=== PATIENT | female | born 1975 | race Caucasian/White ===

== ENCOUNTER 2025-05-29 17:21 | Emergency (ER) | payer BC, SELFPAY ==
--- OUTSIDE RECORDS SUMMARY | 2025-05-27 23:59 | XMS_ITS | Continuity of Care Document ---
Author Organization [facility] Address [address] [place] [address]- Care Team Providers Care Circle Cutting Saw Operator Name Role Phone Aixa Sandhu Primary Care Physician [phone] Encounter [facility] Date(s): 04/27/25 - 05/27/25 [facility] [address], [place] [address] Encounter Type: Triage Allergies, Adverse Reactions, Alerts Substance Criticality Severity Reaction Reaction Severity Status amoxicillin Rash Active Medications Copper 0 Refills, Maintenance, 03/24/25 3:02:00 PM EDT, Partial fill upon patient request if the prescription is for a schedule II opioid drug. Start Date: 03/24/25 Status: Ordered Medication Dispense Status: Completed Total Allowed Fills: 1 Fills Dispensed: 0 ferrous sulfate 325 mg oral enteric coated tablet See Instructions, 1 tablet three times a day by Mouth Every other day. may take with food to minimize abdominal discomfort., # 126 tablet, Refills 3, Tot. Refills 3, Maintenance, 09/18/24 3:40:00 PM EST, Instructions Replace Required Details, Route to Pharmacy Electronically, [facility] # [id number], Partial fill upon patient request if the prescription is for a schedule II opioid drug., 157.5, cm, 09/16/24 8:24:00 EST, Height Start Date: 09/18/24 Status: Ordered Medication Dispense Status: Completed Quantity: 126.0 Unit: tablet Total Allowed Fills: 4 Fills Dispensed: 0 Keppra 750 mg oral tablet 2 tablet = 1,500 mg, By Mouth, 2 times a day, # 360 tablet, 0 Refills, Maintenance, 04/21/25 2:47:00PM EDT, Tablet, [id number], Partial fill upon patient request if the prescription is for a schedule II opioid drug. Please ask pt to call office to schedule appointment for any further refills., 158, cm, 03/24/25 15:02:00 EDT, Height, 130.8, kg, 12/09/24 14:13:00 EDT, Dry Weight Start Date: 04/21/25 Status: Ordered Medication Dispense Status: Completed Quantity: 360.0 Unit: tablet Total Allowed Fills: 1 Fills Dispensed: 0 Magnesium Citrate By Mouth, 0 Refills, Maintenance, 03/24/25 3:01:00 PM EDT, Partial fill upon patient request if the prescription is for a schedule II opioid drug. Start Date: 03/24/25 Status: Ordered Medication Dispense Status: Completed Total Allowed Fills: 1 Fills Dispensed: 0 omeprazole 20 mg oral enteric coated capsule 1 capsule, By Mouth, Daily, # 90 capsule, 1 Refills, Maintenance, 04/14/25 12:56:00 PM EDT, [facility] # 50, 158, cm, 03/24/25 15:02:00 EDT, Height, 130.8, kg, 12/09/24 14:13:00 EDT, Dry Weight Start Date: 04/14/25 Status: Ordered Medication Dispense Status: Completed Quantity: 90.0 Unit: capsule Total Allowed Fills: 1 Fills Dispensed: 0 Provera 10 mg oral tablet See Instructions, 1 tablet by mouth twice daily until bleeding slows then once daily for a total of10 days, # 20 tablet, Refills 0, Tot. Refills 0, Maintenance, 05/27/25 9:25:00 AM EDT, InstructionsReplace Required Details, Route to Pharmacy Electronically, [facility] #[id number], Partial fill upon patient request if the prescription is for a schedule II opioid drug., 158, cm, 05/08/25 15:02:00 EDT, Height, 130.8, kg, 12/09/24 14:13:00 EDT, Dry Weight Start Date: 05/27/25 Status: Ordered Medication Dispense Status: Completed Quantity: 20.0 Unit: tablet Total Allowed Fills: 1 Fills Dispensed: 0 solifenacin 5 mg oral tablet 1 tablet = 5 mg, By Mouth, Daily, # 30 tablet, 2 Refills, Maintenance, 01/21/25 11:55:00 AM EDT, Tablet, [facility] # 50, Partial fill upon patient request if the prescription is for a schedule IIopioid drug., 158, cm, 01/08/25 8:25:00 EDT, Height, 130.8, kg, 12/09/24 14:13:00 EDT, Dry Weight Start Date: 01/21/25 Status: Ordered Medication Dispense Status: Completed Quantity: 30.0 Unit: tablet Total Allowed Fills: 3 Fills Dispensed: 0 Suprep Bowel Prep Kit oral liquid See Instructions, see colonoscopy instructions, # 1 kit, 0 Refills, Maintenance, 04/21/24 3:55:00 PMEDT, [facility] # [facility], Partial fill upon patient request if the prescription is for a schedule II opioid drug., see colonoscopy instructions, 157.5, cm, 04/21/24 15:13:00 EDT, Height Start Date: 04/21/24 Status: Ordered Medication Dispense Status: Completed Quantity: 1.0 Unit: kit Total Allowed Fills: 1 Fills Dispensed: 0 tolterodine 4 mg oral capsule, extended release 1 capsule = 4 mg, By Mouth, Daily, # 30 capsule, 11 Refills, Maintenance, 09/25/24 3:26:00 PM EST, [facility] # [facility], Partial fill upon patient request if the prescription is for a schedule II opioid drug., 157.5, cm, 04/24/24 14:58:00 EDT, Height Start Date: 09/25/24 Stop Date: 09/20/25 Status: Ordered Medication Dispense Status: Completed Quantity: 30.0 Unit: capsule Total Allowed Fills: 12 Fills Dispensed: 0 trospium 60 mg oral capsule, extended release 1 capsule = 60 mg, By Mouth, Daily in AM, # 30 capsule, 2 Refills, Maintenance, 03/05/25 2:13:00 PM EDT, CR Capsule, [facility] # [facility], Partial fill upon patient request if the prescription is for a schedule II opioid drug., 158, cm, 03/05/25 13:46:00 EDT, Height, 130.8, kg, 12/09/24 14:13:00 EDT, Dry Weight Start Date: 03/05/25 Status: Ordered Medication Dispense Status: Completed Quantity: 30.0 Unit: capsule Total Allowed Fills: 3 Fills Dispensed: 0 Vitamin B12 0 Refills, Maintenance, 03/05/25 1:47:00 PM EDT, Partial fill upon patient request if the prescription is for a schedule II opioid drug. Start Date: 03/05/25 Status: Ordered Medication Dispense Status: Completed Total Allowed Fills: 1 Fills Dispensed: 0 Vitamin C = 250 mg, By Mouth, 3 times a day, take with iron, 0 Refills, Maintenance, 12/09/24 5:00:00 PM EDT, Partial fill upon patient request if the prescription is for a schedule II opioid drug. Start Date: 12/09/24 Status: Ordered Medication Dispense Status: Completed Total Allowed Fills: 1 Fills Dispensed: 0 Vitamin D 12719 iu oral capsule 50,000 International_Units, By Mouth, Daily, Refills 0, Maintenance, 03/05/25 1:47:00 PM EDT, Partialfill upon patient request if the prescription is for a schedule II opioid drug. Start Date: 03/05/25 Status: Ordered Medication Dispense Status: Completed Total Allowed Fills: 1 Fills Dispensed: 0 ZyrTEC 10 mg oral tablet 1 tablet = 10 mg, By Mouth, Daily, 0 Refills, Maintenance, 01/08/25 8:25:00 AM EDT, Partial fill upon patient request if the prescription is for a schedule II opioid drug. Start Date: 01/08/25 Status: Ordered Medication Dispense Status: Completed Total Allowed Fills: 1 Fills Dispensed: 0 Problem List Condition Confirmation Course Effective Dates Status Health St atus Informant Epilepsy Confirmed Active Iron deficiency anemia Confirmed Active Obesity, morbid, BMI 50 or higher Confirmed Active Nonalcoholic fatty liver disease Confirmed Active Plantar fasciitis, right Confirmed Active Severe obesity Confirmed Active Tubular adenoma of colon Confirmed Active Social History Social History Type Response Smoking Status Never (less than 100 in lifetime) entered on: 05/14/23 Sexual Orientation Self described orien tation: ; Straight or heterosexual Sex Sex Representation Female (finding) Patient Care team information Care Team Personnel Name: Aixa Sandhu Position: S PCO Associate Professional Member Role: PCP Address: [address] [place] [phone]- [place] Telecom: Care Team Related Persons Name: DEANGELO ALTAMIRANO Insurance Providers Guarantor name: GREY ALTAMIRANO Health Plan Information #: 1 Payer: [facility] H[facility] Payer Identifier: NA Member Number: [id number] Group Number: [id number] Subscriber Identifier: NA Relationship to Subscriber: spouse Coverage Type: NA Coverage Verification Date: NA Telecom: NA Address: NA
[2025-05-29 17:36] VITALS: BP 172/83; PULSE 86; RESP 16; TEMP 36.6; O2SAT 96; BMI 50.7
--- NOTE | 2025-05-29 17:36 | ED_ITS ---
HPI - Eye Problem General Chief complaint: Eye Problems Stated complaint: Eye issue Time Seen by Provider: 05/29/25 20:10 History of Present Illness HPI Narrative: 49-year-old female with a history of hypertension presents with left eye blurriness x1 week. Patient states she has had a stye over the lower lid, she has developed blurriness of the eye, the lower lid is still painful, she is tearing at times, she is not waking up with a ocular discharge in the morning. The eyeball itself is non- painful and not red. She does not use contact lenses. She does wear glasses. She denies that she sees a ? curtain closing in her field of view . Related Data Previous Rx's ?Medication ?Instructions ?Recorded neomycin 3.5 mg/g-polymyxin B 0.5 inch ophthalmic-Left QID 2 05/30/25 10,000 unit/g-dexameth 0.1 % eye weeks #3.5 grams oint (Maxitrol) Allergies Allergy/AdvReac Type Severity Reaction Status Date / Time amoxicillin Allergy Rash Verified 05/29/25 17:37 Review of Systems Review of Systems: Yes all other systems are reviewed and are negative Constitutional: Constitutional: Denies fatigue, Denies fever(s) and Denies headache(s) Eyes: Eyes: Reports blurry vision, Reports eye discharge, Denies floaters, Reports itchy eyes, Denies loss of peripheral vision and Denies photophobia ENT: Denies dizziness and Denies headache(s) Gastrointestinal: Gastrointestinal: Denies nausea and Denies vomiting Neurologic: Denies dizziness and Denies headache(s) Endocrine: Endocrine: Denies fatigue Allergic/Immunologic: Allergic/Immunologic: Reports itchy eyes PMFSH Past Medical History Attestation statement: The following information was validated with the patient. Social History Social History Smoked in Last 30 Days: No Use of substances other than those prescribed or required for medical reasons: No Advance Directives: No Advance Directives Information Provided: Yes Do you have a plan to hurt others: No Plan Physical Exam Vital Signs: Vital Signs: Last Vital Signs Temp 97.8 F 05/29/25 22:02 Pulse 72 05/29/25 22:02 Resp 18 05/29/25 22:02 BP 135/84 05/29/25 22:02 Pulse Ox 95 05/29/25 22:02 O2 Del Method Room Air 05/29/25 22:02 BMI result Body Mass Index 50.7 Const: Other: Alert well-appearing Orientation/consciousness: patient oriented x3 Eyes: Other: Extraocular eye movements intact, no corneal abrasion noted with fluorescein stain, visual acuity 0 on the left, 2014 on the right, IOP 17.7, Direct Ophthalmoscopy: No photophobia Resp: Effort & Inspection: normal respiratory effort Cardio: Other: Normal peripheral perfusion Skin: Other: Warm dry no rash Neuro: General: patient oriented x3, gait normal, no focal motor deficits and CN's II-XI intact bilaterally Psych: Other: Cooperative Course Course Course Narrative: This is a Rapid Medical Examination (RME) performed by Kelly Kenney PA-C in triage. Full HPI, ROS, assessment and treatment plan per primary provider in the Main ED. Hx: 49 yo F hx seizures on keppra here w/ blurred vision to L eye on waking 4 days ago. no pain/irritation. admits to L eye pain 1 week prior, followed by a stye in the L eye which has since resolved. blurred vision has persisted. reports ocular migraine 1 week ago. attempted to contact ophalmology - cannot get an appointment. mild LEE at present which is her baseline. Plan: eye exam Reevaluation(s) Reevaluation #1: Called the patient back overnight to let her know that the office we will be open on Sunday, not today which is Sunday I miss spoke, she is aware and aware of the medication change per Dr. Tidwell Time: 06:34 Consultations Consultation #1: Dr. Tidwell....recs hot tea bag compresses for 5 minutes gentle massage, and Maxitrol q.i.d. x2 weeks Time: 06:33 Medications Administered Discontinued Medications Generic Name Dose Route Start Last Admin Trade Name Freq PRN Reason Stop Dose Admin Erythromycin 1 cm 05/29/25 21:55 05/29/25 21:59 Erythromycin Base 0.5% Oph Oin 1 Gm Tube EYE-LEFT 05/29/25 21:56 1 cm ONCE ONE Administration Fluorescein Sodium 1 strip 05/29/25 17:39 05/29/25 18:46 Fluorescein Sodium Strip EYE-LEFT 05/29/25 17:40 1 strip ONCE ONE Administration Tetracaine HCl 1 drop 05/29/25 17:39 05/29/25 18:46 Tetracaine Hcl/Pf 0.5% Oph Consuelo 4 Ml Drops EYE-LEFT 05/29/25 17:40 1 drop ONCE ONE Administration Medical Decision Making Medical Decision Making [facility] Narrative: 49-year-old female with a history of hypertension presents with left eye blurriness x1 week. Patient states she has had a stye over the lower lid, she has developed blurriness of the eye, the lower lid is still painful, she is tearing at times, she is not waking up with a ocular discharge in the morning. The eyeball itself is non- painful and not red. She does not use contact lenses. She does wear glasses. She denies that she sees a ? curtain closing in her field of view . Problem: History of hypertension, age History: Per patient I have considered the following differential diagnoses: Stye, conjunctivitis, corneal abrasion/ulceration, vitreal hemorrhage/detachment, retinal detachment, glaucoma, Plan: Patient is having subtle blurred vision of the left eye in the presence of a stye that has irritating. She has no abrasion, her intra-ocular pressures are normal at 17.7, the eye itself is nonpainful, there was no injection of the sclera or palpebral conjunctiva, I have viewed the site with bedside ultrasound, no evidence of retinal detachment or vitreal hemorrhage. We will send with a contact follow up with Ophthalmology, placing on erythromycin. No indication for imaging or labs. This is clearly not glaucoma, Differential Diagnosis Differential Diagnoses: The differential diagnosis associated with the presentation includes See medical decision-making Admission/Observation Consideration of admission/observation: Escalation of care including admission/observation considered Not applicable Consult Healthcare Provider Management of the patient was discussed with: Gymnastics Coach Ophthalmology for Sunday Discharge Plan Discharge Clinical Impression: Blurred vision, left eye, Chalazion left lower eyelid Patient Disposition: Home, Self-Care Instructions: Chalazion (ED), Blurred Vision (ED) Additional Instructions: You were found to have a stye, see home care instructions. Apply warm compresses several times a day. Use the erythromycin ointment as directed. I am providing you with a contact for our customer support representative, you can reach out to them in the morning when their office opens on Sunday. I am sending them an inter-hospital referral message as well. Prescriptions: New neomycin-polymyxin B-dexameth [Maxitrol] 3.5 mg/g-10,000 unit/g-0.1 % ointment 0.5 inch ophthalmic-Left QID 14 Days Qty: 3.5 1RF Rx Instructions: space evenly during waking hours Referrals: Ankur Tidwell [Physician, Ophthalmology] Referral Note: left chalazion lower lid, blurred vision Interventions: ED Discharge Assessment Last Done: 05/29/25 22:02 Discharge Date/Time: 05/29/25 22:03 Print Language: Croatian
[2025-05-29] MEDS: Tetracaine HCl/PF 0.5% Oph Sol 4 ML DROPS 1 DROP EYE-LEFT (18:46)
[2025-05-29] MEDS: Fluorescein Sodium STRIP 1 STRIP EYE-LEFT (18:46)
--- OUTSIDE RECORDS SUMMARY | 2025-05-29 19:39 | XMS_ITS | Encounter Summary ---
Author Organization [facility] Address [address] [place] [phone] Phone Care Team Providers Care Senior Cognos Developer Name Role Phone Pcp, Unknown Primary Care Provider Cathy Christiansen Primary Care Provider Reason for Referral * Physical Therapy (Routine) - Closed Specialty Diagnoses / Procedures Referred By Richard okeefe Referred To Contact Physical Therapy Diagnoses Encounter for rehabilitation Cathy [place] PA [address] [place] [phone] Phone: tel: fax: [address] [address] Phone: tel: Referral ID Status Reason Start Date Expiration Date Visits Re quested Visits Authorized [id number] Closed 06/20/2023 06/20/2024 1 1 Encounter Details Date Type Department Care Team (Latest Contact Info) Description 06/20/2023 Transcribe Orders [facility] [address] [place] [address] Cathy [place] PA [address] [place] [address] Encounter for rehabilitation (Primary Dx) Social History Tobacco Use Types Packs/Day Years Used Date Smoking Tobacco: Never Assessed Comments Unknown Sex and Gender Information Value Date Recorded Sex Assigned at Not on file Legal Sex Female 10:16 AM EST Gender Identity Not on file Sexual Orientation Not on file documented as of this encounter Plan of Treatment Scheduled Referrals Name Type Priority Associated Diagnoses Orde r Schedule Ambulatory referral to [facility] Physical Therapy Outpatient Referral Routine Encounter for rehabilitation Ordered: 06/20/2023 documented as of this encounter Visit Diagnoses Diagnosis Encounter for rehabilitation- Primary documented in this encounter Care Teams Senior Cognos Developer Relationship Specialty Start Date End Date Pcp, Unknown PCP - General 06/05/23 07/25/23 Cathy [place] PA [address] [place] [address] PCP - General Physician Earth Mover 07/26/23 documented as of this encounter Additional Source Comments The information contained in this document represents components of the legal health record. It is not the complete legal health record.[facility]
--- OUTSIDE RECORDS SUMMARY | 2025-05-29 19:39 | XMS_ITS | Patient Health Record ---
Author Organization [facility] [address] Address [address] [place] [address] Care Team Providers Care Senior Interactive Developer Name Role Phone Aixa Fried Primary Care Provider Ramonita Shah Unavailable [phone] Allergies Allergen (clinical drug ingredient) Drug/Non Drug Allergy documented on EMR Reaction Allergy Type Onset Date Status amoxicillin Amoxicillin rash Drug Allergy Act klaudia Results Component Value Reference Range Notes Lori Godinez LP Default Reviewed date:05/04/2025 10:32:44 AM Interpretation: Performing Lab:[facility], [address] [facility], Phone - [phone], Director - MDNonadry Notes/Report: Lori Godinez LP Default A hand-written panel/profile was received from your office. In accordance with the [facility] Ambiguous Test Code Policy dated January 2003, we have completed your order by using the closest currently or formerly recognized AMA panel. We have assigned Lipid Panel, Test Code #[id number] to this request. If this is not the testing you wished to receive on this specimen, please contact the [facility] Client Inquiry/Technical Services Department to clarify the test order. We appreciate your business. TSH Rfx on Abnormal to Free [id number] Reviewed date:05/04/2025 10:32:57 AM Interpretation: Performing Lab:[facility], [address] [facility], [place], Phone - [phone], Director - MDJodry Notes/Report: TSH 3.170 0.450-4.500 uIU/mL Lori Godinez CMP14 Default A hand-written panel/profile was received from your office. In accordance with the [facility] Ambiguous Test Code Policy dated January 2003, we have completed your order by using the closest currently or formerly recognized AMA panel. We have assigned Comprehensive Metabolic Panel (14), Test Code #[id number] to this request. If this is not the testing you wished to receive on this specimen, please contact the [facility] Client Inquiry/Technical Services Department to clarify the test order. We appreciate your business. Lipid Panel-[id number] Reviewed date:05/04/2025 10:34:51 AM Interpretation: Performing Lab:[facility], [address] [facility], [place], Phone - [phone], Director - Brittani Notes/Report: Cholesterol, Total 199 100-199 mg/dL Triglycerides 159 0-149 mg/dL HDL Cholesterol 46 >39 mg/dL VLDL Cholesterol Jack 28 5-40 mg/dL LDL Chol Calc ([facility]) 125 0-99 mg/dL CBC With Differential/Platel et-[id number] Reviewed date:05/04/2025 10:37:27 AM Interpretation: Performing Lab:[facility] [place], [address] [facility], [place], Phone - [phone], Director - Brittani Notes/Report: WBC 8.9 3.4-10.8 x10E3/uL RBC 4.51 3.77-5.28 x10E6/uL Hemoglobin 13.5 11.1-15.9 g/dL Hematocrit 41.1 34.0-46.6 % MCV 91 79-97 fL MCH 29.9 26.6-33.0 pg MCHC 32.8 31.5-35.7 g/dL RDW 13.2 11.7-15.4 % Platelets 339 150-450 x10E3/uL Neutrophils 57 Not Estab. % Lymphs 28 Not Estab. % Monocytes 8 Not Estab. % Eos 6 Not Estab. % Basos 1 Not Estab. % Neutrophils (Absolute) 5.2 1.4-7.0 x10E3/uL Lymphs (Absolute) 2.5 0.7-3.1 x10E3/uL Monocytes(Absolute) 0.7 0.1-0.9 x10E3/uL Eos (Absolute) 0.5 0.0-0.4 x10E3/uL Baso (Absolute) 0.1 0.0-0.2 x10E3/uL Immature Granulocytes 0 Not Estab. % Immature Grans (Abs) 0.0 0.0-0.1 x10E3/uL Hemoglobin [id number] Reviewed date:05/04/2025 10:34:35 AM Interpretation: Performing Lab:[facility] [place], [address] [facility], [place], Phone - [phone], Director - Brittani Notes/Report: Hemoglobin A1c 5.6 4.8-5.6 % . Prediabetes: 5.7 - 6.4 Diabetes: >6.4 Glycemic control for adults with diabetes: <7.0 Comp. Metabolic Panel (14)-3 [id number] (Not yet reviewed by provider) Interpretation: Performing Lab:[facility] [place], [address] [facility], [place], Phone - [phone], Director - Brittani Notes/Report: Glucose 97 70-99 mg/dL BUN 11 6-24 mg/dL Creatinine 0.79 0.57-1.00 mg/dL eGFR 91 >59 mL/min/1.73 BUN/Creatinine Ratio 14 9-23 Sodium 138 134-144 mmol/L Potassium 4.4 3.5-5.2 mmol/L Chloride 101 96-106 mmol/L Carbon Dioxide, Total 22 20-29 mmol/L Calcium 9.2 8.7-10.2 mg/dL Protein, Total 7.2 6.0-8.5 g/dL Albumin 4.1 3.9-4.9 g/dL Globulin, Total 3.1 1.5-4.5 g/dL Bilirubin, Total 0.3 0.0-1.2 mg/dL Alkaline Phosphatase 72 41-116 IU/L AST (SGOT) 80 0-40 IU/L ALT (SGPT) 103 0-32 IU/L Vitamin D, [id number] (Not yet reviewed by provider) Interpretation: Performing Lab:[facility] [place], [address] [facility], Phone - [phone], Director - Brittani Notes/Report: Vitamin D, 25-Hydroxy 26.5 30.0-100.0 ng/mL Vitamin D deficiency has been defined by the [place] [employer] and an Endocrine Society practice guideline as a level of serum 25-OH vitamin D less than 20 ng/mL (1,2). The Endocrine Society went on to further define vitamin D insufficiency as a level between 21 and 29 ng/mL (2). 1. IOM ([place] of [employer]). 2010. Dietary reference intakes for calcium and D. [place]: The National Academies Press. 2. Lucila MF, Livia JOHNSON, Daria LEE, et al. Evaluation, treatment, and prevention of vitamin D deficiency: an Endocrine Society clinical practice guideline. JCEM. 2010; 96(7):1911-30. Reason For Referral Diagnosis 1 Dietary counseling ( Z71.3) Referred Provider Aixa Fried Referred Provider Specialty Weight Manag ement Referral Priority Routine Medications Medication SIG (Take, Route, Frequency, Duration) Notes Start Date End Date Status Vitamin D (Cholecalciferol) 25 MCG (1000 UT) 1 capsule Orally Once a day Active levETIRAcetam 750 MG TAKE 2 TABLETS BY M OUTH TWICE DAILY Oral; Duration: 60 Days Active Zepbound 5 MG/0.5ML 0.5 ML Subcutaneous once weekly; Duration: 30 days Active Fluticasone Furoate 100 MCG/ACT 1 puff Inhalation Once a day Active Iron 325 (65 Fe) MG 1 tablet Orally Thre e times a Week Active Social History Tobacco use other than smoking: Question Answer Notes Are you an other tobacco user? No AUDIT-C (Standard) Question Answer Notes Did you have a drink contain ing alcohol in the past year? Yes How often did you have a dri nk containing alcohol in the past year? Monthly or less (1 point) How many drinks did you have on a typical day when you were drinking in the past year? 1 or 2 drinks (0 point) How often did you have six o r more drinks on one occasion in the past year? Never (0 point) Points 1 Interpretation Negative Problems Problem Type SNOMED Code ICD Code Onset Dates Problem Status W/U Status Risk Notes Problem Morbid obesity (disorder) (659933010) Morbid (severe) obesity due to excess calories (E66.01) Active confirmed Problem Vitamin D deficiency (28817751) Vitamin D deficiency (E55.9) Active confirmed Problem Fatty liver (364498311) Fatty liver (K76.0) Active confirmed Problem Seizure disorder (523689651) Seizure disorder (G40.909) Active confirmed Problem Body mass index 40+ - severely obese (231422430) BMI 50.0-59.9, adult (Z68.43) Active confirmed Problem Polycystic ovary syndrome (disorder) (860691015) PCOS (polycystic ovarian syndrome) (E28.2) Active confirmed Problem Body mass index 40+ - severely obese (458937805) BMI 45.0-49.9, adult (Z68.42) Active confirmed Problem Obstructive sleep apnea syndrome (16455922) MIKEL on CPAP (G47.33) Active confirmed Vital Signs Heart Rate 81 /min 05/20/2025 Blood pressure diastolic 78 mm Hg 05/20/2025 Oximetry 99 % 05/20/2025 Height 62.5 in 05/20/2025 Blood pressure systolic 118 mm Hg 05/20/2025 Weight 273.7 lbs 05/20/2025 BMI 49.26 kg/m2 05/20/2025 Encounters Encounter Location Date Provider Diagnosis [facility] [address] [address] 04/28/2025 Ramonita Svrcek Morbid (severe) obes ity due to excess calories E66.01 ; BMI 50.0-59.9, adult Z68.43 ; Fatty liver K76.0 ; MIKEL on CPAP G47.33 ; Seizure disorder G40.909 ; PCOS (polycystic ovarian syndrome) E28.2 ; Encounter for examination of blood pressure without abnormal findings Z01.30 and Encounter for weight loss counseling Z71.3 [facility] [address] [address] 05/20/2025 Ramonita Svrcek Morbid (severe) obes ity due to excess calories E66.01 ; BMI 45.0-49.9, adult Z68.42 ; Fatty liver K76.0 ; MIKEL on CPAP G47.33 ; Seizure disorder G40.909 ; PCOS (polycystic ovarian syndrome) E28.2 ; Encounter for examination of blood pressure without abnormal findings Z01.30 and Encounter for weight loss counseling Z71.3 [facility] [address] [facility] [address] [address] 04/28/2025 Ramonita Svrcek Morbid (severe) obes ity due to excess calories E66.01 [facility] [address] [address] 05/09/2025 Ramonita Svrcek [facility] [address] [address] 05/12/2025 Ramonita Svrcek [facility] [address] [address] 05/12/2025 Ramonita Svrcek [facility] [address] [address] 05/21/2025 Ramonita Svrcek [facility] [address] [address] 05/21/2025 Ramonita Svrcek Assessments Encounter Date Diagnosis (ICD Code) Assessment Notes Treatment Notes Treatment Clinical Notes Section Notes 04/28/2025 Morbid (severe) obesity due to excess calories (ICD-10 - E66.01) #Morbid obesity. 277.9 pounds, BMI 50.0. New patient welcome to the practice today. Seca scale results reviewed in detail with patient. She is interested in medical weight loss options. Reviewed in detail with patient. Has previously tried metformin and Topamax and did not tolerate. She is not a candidate for Contrave given her history of seizure disorder. Given her past medical history significant for fatty liver, morbid obesity, MIKEL and PCOS she is an excellent candidate for Zepbound. We reviewed risk benefits adverse effects of medication in detail. Demonstrated proper use of pen autoinjector here in office. Also discussed importance of continued lifestyle modifications including healthy diet with a focus on high-protein, hydration and regular exercise including resistance training and a goal of 6000-10,000 steps daily. We also discussed importance of probiotics and B complex. Discussed option of adding CAMMIE injection which she will consider. Will get updated comprehensive labs and review at follow-up visit. She will clarify family medical history of thyroid disorder. Follow-up with me in 1 month sooner with any concerns. #Fatty liver. Recently established with GI who referred her here for obesity treatment. She is an excellent candidate for Zepbound. #MIKEL. Currently on CPAP nightly. She is an excellent candidate for Zepbound. #Seizure disorder. Question of epilepsy currently on Keppra. Not a candidate for Contrave. #PCOS. Has previously tried metformin however had significant GI side effects. Patient meets criteria for Zepbound/Wegovy due to the following criteria: Patient is over the age of [age] years old. Patients BMI is greater than 30 at 50.0. Comorbidities include: MIKEL, Fatty liver, PCOS. These medications are being prescribed under the supervision of an obesity medicine certified physician, Dr. Gabino Hill. Weight Consult Plan: Patient has been found to be obese with a BMI of 50.0. Patient has class 3 obesity. Patient was reassured and welcomed to the practice. We discussed that we stress a hollistic medical approach with emphasis on lifestyle modification. Patient was informed that a healthy lifestyle with exercise and good eating habits can help reduce his risk of medical complications. He is explained that obesity increases his risk of diabetes, cardiovascular disease, or organ damage. We spent a lot of time discussing the relationship between food, exercise, sleep, mental health and obesity. Patient was counseled on the importance EATING local, organic food when possible. Patient was educated on clean 15 and dirty dozen. I provided information about reading books called The Food Rules by Deshawn Schroeder and Eat Fat Get Lean by Dr Lobito Castro. Self education is important in the journey for weight management. Patient was offered diagnostic testing. We want to measure visceral adiposity, advanced body composition, adverse lipids, fatty acid balance, risk for heart disease and atherosclerosis, markers of inflammation and genetic susceptibility. Patient was counseled on weight management and was advised to lose weight using B. Lifestyle management which includes several strategies as below 1. Eat a low carbohydrate good fat good protein diet. Eliminate refined carbohydrates from the diet. Continue blood sugar and sugared beverages. Eat local organic when possible. Cook your own meals. Read food labels. None about healthy snacks. Portion control and food with low glycemic index 2. Exercise regularly. Try to get at least 6000 steps a day. Use a predominant to track activity level. Consider using apps like RunTitle, myfitRunTitlepal, lose it, stick as needed for self-monitoring and weight management. Consider group exercises. Consider hiring a personal counselor. Regular exercise is ashley to sustainable health and prevents as a buffer against weight regain 3. Sleep is most important for healing. Tried to sleep at least 8 hours a night. A good quality sleep needs a sleep ritual with ideal room temperature of around 68. It might help to take a shower and have no electronics in the room and sleep in a very dark room without artificial light. Start her sleep routine and get up early in the morning and go to bed on time 4. Make a social connection. Surround yourself with positive people with positive energy. Connect with friends and family. 5. Get into the habit of meditating and mindfulness while doing everything. 6. Go outside and connect with nature. C. Prescription medications Patient was educated on the use of prescription medications for medical weight loss. This is a growing list and includes phentermine, Topamax,Qsymia, contrave, belviq and saxenda. All prescription medications could have side effects including but not limited to kidney stones, seizure disorder cardiac arrhythmias heart attack pancreatitis etc. etc.. Patient was encouraged to read the prescription insert and have coaching with their pharmacist and make an informed decision about taking medication and know that these medications are being prescribed with good intentions and we do not know how a patient would react to her medication. Sudden medications are FDA approved for weight loss and there is also off label use depending on patient's inability to afford medications in an attempt to lose weight D. Behavioral counseling was done to establish a relationship between food and an mood. Patient was provided information about local counseling and psychiatry and Dr Schneider at [facility]. We would like to cover regular topics and build on low glycemic eating exercise mindful eating, using yoga and meditation along with deep breathing and connecting with friends and family. E. MASS PAT reviewed, Patient's current medications were reviewed and opinion was given on medication that can cause weight gain and can be substituted F. Patient was assessed for risk with obesity including and not limiting to atherosclerosis heart disease stroke kidney disease, restrictive lung disease, irritable bowel syndrome and overall mortality. Risk of developing prediabetes diabetes and metabolic syndrome was discussed G. Therapeutic plan: We have decided to make therapeutic plan which would include choosing wisely on calories restricting portion getting active, tracking weight, getting good quality sleep and working on time management H. Patient will follow up in (4) weeks for weight management Total time spent today was 60 minutes of which greater than 50% was spent on coordinating and counseling Case discussed with collaborating physician Erum Hill who reviewed the assessment and plan. Chart, medications, labs, vital signs reviewed. Dictation was accomplished with the use of Power [employer]fficiency voice recognition software, prone to medical misidentifications and grammatical errors. This is unintentional and the practitioner does try to identify and correct these, but some could still be present. Please do not hesitate to contact practitioner for clarification. All questions answered to patients satisfaction. Patient verbalized understanding of diagnosis and treatments explained. To call sooner prior to next visit it any questions/concerns arise. 04/28/2025 BMI 50.0-59.9, adult (ICD-10 - Z68.43) #Morbid obesity. 277.9 pounds, BMI 50.0. New patient welcome to the practice today. Seca scale results reviewed in detail with patient. She is interested in medical weight loss options. Reviewed in detail with patient. Has previously tried metformin and Topamax and did not tolerate. She is not a candidate for Contrave given her history of seizure disorder. Given her past medical history significant for fatty liver, morbid obesity, MIKEL and PCOS she is an excellent candidate for Zepbound. We reviewed risk benefits adverse effects of medication in detail. Demonstrated proper use of pen autoinjector here in office. Also discussed importance of continued lifestyle modifications including healthy diet with a focus on high-protein, hydration and regular exercise including resistance training and a goal of 6000-10,000 steps daily. We also discussed importance of probiotics and B complex. Discussed option of adding CAMMIE injection which she will consider. Will get updated comprehensive labs and review at follow-up visit. She will clarify family medical history of thyroid disorder. Follow-up with me in 1 month sooner with any concerns. #Fatty liver. Recently established with GI who referred her here for obesity treatment. She is an excellent candidate for Zepbound. #MIKEL. Currently on CPAP nightly. She is an excellent candidate for Zepbound. #Seizure disorder. Question of epilepsy currently on Keppra. Not a candidate for Contrave. #PCOS. Has previously tried metformin however had significant GI side effects. Patient meets criteria for Zepbound/Wegovy due to the following criteria: Patient is over the age of [age] years old. Patients BMI is greater than 30 at 50.0. Comorbidities include: MIKEL, Fatty liver, PCOS. These medications are being prescribed under the supervision of an obesity medicine certified physician, Dr. Gabino Hill. Weight Consult Plan: Patient has been found to be obese with a BMI of 50.0. Patient has class 3 obesity. Patient was reassured and welcomed to the practice. We discussed that we stress a hollistic medical approach with emphasis on lifestyle modification. Patient was informed that a healthy lifestyle with exercise and good eating habits can help reduce his risk of medical complications. He is explained that obesity increases his risk of diabetes, cardiovascular disease, or organ damage. We spent a lot of time discussing the relationship between food, exercise, sleep, mental health and obesity. Patient was counseled on the importance EATING local, organic food when possible. Patient was educated on clean 15 and dirty dozen. I provided information about reading books called The Food Rules by Deshawn Schroeder and Eat Fat Get Lean by Dr Lobito Castro. Self education is important in the journey for weight management. Patient was offered diagnostic testing. We want to measure visceral adiposity, advanced body composition, adverse lipids, fatty acid balance, risk for heart disease and atherosclerosis, markers of inflammation and genetic susceptibility. Patient was counseled on weight management and was advised to lose weight using B. Lifestyle management which includes several strategies as below 1. Eat a low carbohydrate good fat good protein diet. Eliminate refined carbohydrates from the diet. Continue blood sugar and sugared beverages. Eat local organic when possible. Cook your own meals. Read food labels. None about healthy snacks. Portion control and food with low glycemic index 2. Exercise regularly. Try to get at least 6000 steps a day. Use a predominant to track activity level. Consider using apps like RunTitle, SkyGridpal, lose it, stick as needed for self-monitoring and weight management. Consider group exercises. Consider hiring a personal counselor. Regular exercise is ashley to sustainable health and prevents as a buffer against weight regain 3. Sleep is most important for healing. Tried to sleep at least 8 hours a night. A good quality sleep needs a sleep ritual with ideal room temperature of around 68. It might help to take a shower and have no electronics in the room and sleep in a very dark room without artificial light. Start her sleep routine and get up early in the morning and go to bed on time 4. Make a social connection. Surround yourself with positive people with positive energy. Connect with friends and family. 5. Get into the habit of meditating and mindfulness while doing everything. 6. Go outside and connect with nature. C. Prescription medications Patient was educated on the use of prescription medications for medical weight loss. This is a growing list and includes phentermine, Topamax,Qsymia, contrave, belviq and saxenda. All prescription medications could have side effects including but not limited to kidney stones, seizure disorder cardiac arrhythmias heart attack pancreatitis etc. etc.. Patient was encouraged to read the prescription insert and have coaching with their pharmacist and make an informed decision about taking medication and know that these medications are being prescribed with good intentions and we do not know how a patient would react to her medication. Sudden medications are FDA approved for weight loss and there is also off label use depending on patient's inability to afford medications in an attempt to lose weight D. Behavioral counseling was done to establish a relationship between food and an mood. Patient was provided information about local counseling and psychiatry and Dr Schneider at [facility]. We would like to cover regular topics and build on low glycemic eating exercise mindful eating, using yoga and meditation along with deep breathing and connecting with friends and family. E. MASS PAT reviewed, Patient's current medications were reviewed and opinion was given on medication that can cause weight gain and can be substituted F. Patient was assessed for risk with obesity including and not limiting to atherosclerosis heart disease stroke kidney disease, restrictive lung disease, irritable bowel syndrome and overall mortality. Risk of developing prediabetes diabetes and metabolic syndrome was discussed G. Therapeutic plan: We have decided to make therapeutic plan which would include choosing wisely on calories restricting portion getting active, tracking weight, getting good quality sleep and working on time management H. Patient will follow up in (4) weeks for weight management Total time spent today was 60 minutes of which greater than 50% was spent on coordinating and counseling Case discussed with collaborating physician Erum Hill who reviewed the assessment and plan. Chart, medications, labs, vital signs reviewed. Dictation was accomplished with the use of Power Efficiency voice recognition software, prone to medical misidentifications and grammatical errors. This is unintentional and the practitioner does try to identify and correct these, but some could still be present. Please do not hesitate to contact practitioner for clarification. All questions answered to patients satisfaction. Patient verbalized understanding of diagnosis and treatments explained. To call sooner prior to next visit it any questions/concerns arise. 05/20/2025 Morbid (severe) obesity due to excess calories (ICD-10 - E66.01) #Morbid obesity. 273.7, BMI 49.3. Doing well on Zepbound so far. Currently at 2.5 mg dose. She will be having a procedure to remove uterine polyp in 3 weeks. Advised to hold her dose 2 weeks prior to procedure. Will plan to resume 2.5 mg dose after her procedure and then as long as she is tolerating it well we will move up to 5 mg dose. Continue to work on consistent protein intake, hydration and regular exercise. Follow-up with me in 6 weeks sooner with any concerns. #Fatty liver. Recently established with GI who referred her here for obesity treatment. Now on Zepbound. LFTs minimally elevated on labs. #MIEKL. Currently on CPAP nightly. Now on Zepbound. #Seizure disorder. Question of epilepsy currently on Keppra. Not a candidate for Contrave. #PCOS. Has previously tried metformin however had significant GI side effects. The patient will continue exercise regimen with an emphasis on improving/increasing steps to at least 6,000-10,000 steps per day. Increasing cardio and strength training exercises as tolerated to improve weight loss and work on building muscle mass. Patient is committed to smarter eating with calorie counting and mindful eating. Limiting processed foods and carbohydrates and increasing leafy greens and lean proteins as well as fruits into their diet. Patient was counseled on the importance of eating local, organic food when possible. Patient has been counseled regarding effects of GLP/GIP-1 agonists and other FDA approved weight loss medications with regards to a multifactorial approach of weight loss as mentioned above and that the medication alone will not be sufficient to meet patients goals. We discussed holistic medication approach with emphasis on lifestyle modification. Discussed obesity as it increases risk of diabetes, cardiovascular disease, and/or organ damage. We spent a lot of time discussing the relationship between food, exercise, sleep, mental health, and obesity. We discussed the importance of having SECAs done every visit and having accountability done during these visits. That the scale is done to monitor not only weight loss but the body composition during medication management and healthy lifestyle changes. We discussed that if the patient is unable at times to financially afford this scale that we would rather waive the fee and have the scale done than have the patient not have the scale obtained. Will follow up with the patient in 4 weeks time to monitor weight loss. Total time was 30 min, greater than 50 % of time was spent on care coordination Case discussed with collaborating physician Erum Hill who reviewed the assessment and plan. Chart, medications, labs, vital signs reviewed. Dictation was accomplished with the use of Power Efficiency voice recognition software, prone to medical misidentifications and grammatical errors. This is unintentional and the practitioner does try to identify and correct these, but some could still be present. Please do not hesitate to contact practitioner for clarification. All questions answered to patients satisfaction. Patient verbalized understanding of diagnosis and treatments explained. To call sooner prior to next visit it any questions/concerns arise. 05/20/2025 BMI 45.0-49.9, adult (ICD-10 - Z68.42) #Morbid obesity. 273.7, BMI 49.3. Doing well on Zepbound so far. Currently at 2.5 mg dose. She will be having a procedure to remove uterine polyp in 3 weeks. Advised to hold her dose 2 weeks prior to procedure. Will plan to resume 2.5 mg dose after her procedure and then as long as she is tolerating it well we will move up to 5 mg dose. Continue to work on consistent protein intake, hydration and regular exercise. Follow-up with me in 6 weeks sooner with any concerns. #Fatty liver. Recently established with GI who referred her here for obesity treatment. Now on Zepbound. LFTs minimally elevated on labs. #MIKEL. Currently on CPAP nightly. Now on Zepbound. #Seizure disorder. Question of epilepsy currently on Keppra. Not a candidate for Contrave. #PCOS. Has previously tried metformin however had significant GI side effects. The patient will continue exercise regimen with an emphasis on improving/increasing steps to at least 6,000-10,000 steps per day. Increasing cardio and strength training exercises as tolerated to improve weight loss and work on building muscle mass. Patient is committed to smarter eating with calorie counting and mindful eating. Limiting processed foods and carbohydrates and increasing leafy greens and lean proteins as well as fruits into their diet. Patient was counseled on the importance of eating local, organic food when possible. Patient has been counseled regarding effects of GLP/GIP-1 agonists and other FDA approved weight loss medications with regards to a multifactorial approach of weight loss as mentioned above and that the medication alone will not be sufficient to meet patients goals. We discussed holistic medication approach with emphasis on lifestyle modification. Discussed obesity as it increases risk of diabetes, cardiovascular disease, and/or organ damage. We spent a lot of time discussing the relationship between food, exercise, sleep, mental health, and obesity. We discussed the importance of having SECAs done every visit and having accountability done during these visits. That the scale is done to monitor not only weight loss but the body composition during medication management and healthy lifestyle changes. We discussed that if the patient is unable at times to financially afford this scale that we would rather waive the fee and have the scale done than have the patient not have the scale obtained. Will follow up with the patient in 4 weeks time to monitor weight loss. Total time was 30 min, greater than 50 % of time was spent on care coordination Case discussed with collaborating physician Erum Hill who reviewed the assessment and plan. Chart, medications, labs, vital signs reviewed. Dictation was accomplished with the use of [employer] voice recognition software, prone to medical misidentifications and grammatical errors. This is unintentional and the practitioner does try to identify and correct these, but some could still be present. Please do not hesitate to contact practitioner for clarification. All questions answered to patients satisfaction. Patient verbalized understanding of diagnosis and treatments explained. To call sooner prior to next visit it any questions/concerns arise. 04/28/2025 Morbid (severe) obesity due to excess calories (ICD-10 - E66.01) Electronic Prior Authorization was requested for Zepbound 2.5 MG/0.5ML Solution Auto-injector. Provider can order medication once approval received. 05/20/2025 Fatty liver (ICD-10 - K76.0) #Morbid obesity. 273.7, BMI 49.3. Doing well on Zepbound so far. Currently at 2.5 mg dose. She will be having a procedure to remove uterine polyp in 3 weeks. Advised to hold her dose 2 weeks prior to procedure. Will plan to resume 2.5 mg dose after her procedure and then as long as she is tolerating it well we will move up to 5 mg dose. Continue to work on consistent protein intake, hydration and regular exercise. Follow-up with me in 6 weeks sooner with any concerns. #Fatty liver. Recently established with GI who referred her here for obesity treatment. Now on Zepbound. LFTs minimally elevated on labs. #MIKEL. Currently on CPAP nightly. Now on Zepbound. #Seizure disorder. Question of epilepsy currently on Keppra. Not a candidate for Contrave. #PCOS. Has previously tried metformin however had significant GI side effects. The patient will continue exercise regimen with an emphasis on improving/increasing steps to at least 6,000-10,000 steps per day. Increasing cardio and strength training exercises as tolerated to improve weight loss and work on building muscle mass. Patient is committed to smarter eating with calorie counting and mindful eating. Limiting processed foods and carbohydrates and increasing leafy greens and lean proteins as well as fruits into their diet. Patient was counseled on the importance of eating local, organic food when possible. Patient has been counseled regarding effects of GLP/GIP-1 agonists and other FDA approved weight loss medications with regards to a multifactorial approach of weight loss as mentioned above and that the medication alone will not be sufficient to meet patients goals. We discussed holistic medication approach with emphasis on lifestyle modification. Discussed obesity as it increases risk of diabetes, cardiovascular disease, and/or organ damage. We spent a lot of time discussing the relationship between food, exercise, sleep, mental health, and obesity. We discussed the importance of having SECAs done every visit and having accountability done during these visits. That the scale is done to monitor not only weight loss but the body composition during medication management and healthy lifestyle changes. We discussed that if the patient is unable at times to financially afford this scale that we would rather waive the fee and have the scale done than have the patient not have the scale obtained. Will follow up with the patient in 4 weeks time to monitor weight loss. Total time was 30 min, greater than 50 % of time was spent on care coordination Case discussed with collaborating physician Erum Hill who reviewed the assessment and plan. Chart, medications, labs, vital signs reviewed. Dictation was accomplished with the use of [employer] voice recognition software, prone to medical misidentifications and grammatical errors. This is unintentional and the practitioner does try to identify and correct these, but some could still be present. Please do not hesitate to contact practitioner for clarification. All questions answered to patients satisfaction. Patient verbalized understanding of diagnosis and treatments explained. To call sooner prior to next visit it any questions/concerns arise. 04/28/2025 Fatty liver (ICD-10 - K76.0) #Morbid obesity. 277.9 pounds, BMI 50.0. New patient welcome to the practice today. Seca scale results reviewed in detail with patient. She is interested in medical weight loss options. Reviewed in detail with patient. Has previously tried metformin and Topamax and did not tolerate. She is not a candidate for Contrave given her history of seizure disorder. Given her past medical history significant for fatty liver, morbid obesity, MIKEL and PCOS she is an excellent candidate for Zepbound. We reviewed risk benefits adverse effects of medication in detail. Demonstrated proper use of pen autoinjector here in office. Also discussed importance of continued lifestyle modifications including healthy diet with a focus on high-protein, hydration and regular exercise including resistance training and a goal of 6000-10,000 steps daily. We also discussed importance of probiotics and B complex. Discussed option of adding CAMMIE injection which she will consider. Will get updated comprehensive labs and review at follow-up visit. She will clarify family medical history of thyroid disorder. Follow-up with me in 1 month sooner with any concerns. #Fatty liver. Recently established with GI who referred her here for obesity treatment. She is an excellent candidate for Zepbound. #MIKEL. Currently on CPAP nightly. She is an excellent candidate for Zepbound. #Seizure disorder. Question of epilepsy currently on Keppra. Not a candidate for Contrave. #PCOS. Has previously tried metformin however had significant GI side effects. Patient meets criteria for Zepbound/Wegovy due to the following criteria: Patient is over the age of [age] years old. Patients BMI is greater than 30 at 50.0. Comorbidities include: MIKEL, Fatty liver, PCOS. These medications are being prescribed under the supervision of an obesity medicine certified physician, Dr. Gabino Hill. Weight Consult Plan: Patient has been found to be obese with a BMI of 50.0. Patient has class 3 obesity. Patient was reassured and welcomed to the practice. We discussed that we stress a hollistic medical approach with emphasis on lifestyle modification. Patient was informed that a healthy lifestyle with exercise and good eating habits can help reduce his risk of medical complications. He is explained that obesity increases his risk of diabetes, cardiovascular disease, or organ damage. We spent a lot of time discussing the relationship between food, exercise, sleep, mental health and obesity. Patient was counseled on the importance EATING local, organic food when possible. Patient was educated on clean 15 and dirty dozen. I provided information about reading books called The Food Rules by Deshawn Schroeder and Eat Fat Get Lean by Dr Lobito Castro. Self education is important in the journey for weight management. Patient was offered diagnostic testing. We want to measure visceral adiposity, advanced body composition, adverse lipids, fatty acid balance, risk for heart disease and atherosclerosis, markers of inflammation and genetic susceptibility. Patient was counseled on weight management and was advised to lose weight using B. Lifestyle management which includes several strategies as below 1. Eat a low carbohydrate good fat good protein diet. Eliminate refined carbohydrates from the diet. Continue blood sugar and sugared beverages. Eat local organic when possible. Cook your own meals. Read food labels. None about healthy snacks. Portion control and food with low glycemic index 2. Exercise regularly. Try to get at least 6000 steps a day. Use a predominant to track activity level. Consider using apps like RunTitle, WizdeefitRunTitlepal, lose it, stick as needed for self-monitoring and weight management. Consider group exercises. Consider hiring a personal counselor. Regular exercise is ashley to sustainable health and prevents as a buffer against weight regain 3. Sleep is most important for healing. Tried to sleep at least 8 hours a night. A good quality sleep needs a sleep ritual with ideal room temperature of around 68. It might help to take a shower and have no electronics in the room and sleep in a very dark room without artificial light. Start her sleep routine and get up early in the morning and go to bed on time 4. Make a social connection. Surround yourself with positive people with positive energy. Connect with friends and family. 5. Get into the habit of meditating and mindfulness while doing everything. 6. Go outside and connect with nature. C. Prescription medications Patient was educated on the use of prescription medications for medical weight loss. This is a growing list and includes phentermine, Topamax,Qsymia, contrave, belviq and saxenda. All prescription medications could have side effects including but not limited to kidney stones, seizure disorder cardiac arrhythmias heart attack pancreatitis etc. etc.. Patient was encouraged to read the prescription insert and have coaching with their pharmacist and make an informed decision about taking medication and know that these medications are being prescribed with good intentions and we do not know how a patient would react to her medication. Sudden medications are FDA approved for weight loss and there is also off label use depending on patient's inability to afford medications in an attempt to lose weight D. Behavioral counseling was done to establish a relationship between food and an mood. Patient was provided information about local counseling and psychiatry and Dr Schneider at [facility]. We would like to cover regular topics and build on low glycemic eating exercise mindful eating, using yoga and meditation along with deep breathing and connecting with friends and family. E. MASS PAT reviewed, Patient's current medications were reviewed and opinion was given on medication that can cause weight gain and can be substituted F. Patient was assessed for risk with obesity including and not limiting to atherosclerosis heart disease stroke kidney disease, restrictive lung disease, irritable bowel syndrome and overall mortality. Risk of developing prediabetes diabetes and metabolic syndrome was discussed G. Therapeutic plan: We have decided to make therapeutic plan which would include choosing wisely on calories restricting portion getting active, tracking weight, getting good quality sleep and working on time management H. Patient will follow up in (4) weeks for weight management Total time spent today was 60 minutes of which greater than 50% was spent on coordinating and counseling Case discussed with collaborating physician Erum Hill who reviewed the assessment and plan. Chart, medications, labs, vital signs reviewed. Dictation was accomplished with the use of [employer]fficiency voice recognition software, prone to medical misidentifications and grammatical errors. This is unintentional and the practitioner does try to identify and correct these, but some could still be present. Please do not hesitate to contact practitioner for clarification. All questions answered to patients satisfaction. Patient verbalized understanding of diagnosis and treatments explained. To call sooner prior to next visit it any questions/concerns arise. 04/28/2025 MIKEL on CPAP (ICD-10 - G47.33) #Morbid obesity. 277.9 pounds, BMI 50.0. New patient welcome to the practice today. Seca scale results reviewed in detail with patient. She is interested in medical weight loss options. Reviewed in detail with patient. Has previously tried metformin and Topamax and did not tolerate. She is not a candidate for Contrave given her history of seizure disorder. Given her past medical history significant for fatty liver, morbid obesity, MIKEL and PCOS she is an excellent candidate for Zepbound. We reviewed risk benefits adverse effects of medication in detail. Demonstrated proper use of pen autoinjector here in office. Also discussed importance of continued lifestyle modifications including healthy diet with a focus on high-protein, hydration and regular exercise including resistance training and a goal of 6000-10,000 steps daily. We also discussed importance of probiotics and B complex. Discussed option of adding CAMMIE injection which she will consider. Will get updated comprehensive labs and review at follow-up visit. She will clarify family medical history of thyroid disorder. Follow-up with me in 1 month sooner with any concerns. #Fatty liver. Recently established with GI who referred her here for obesity treatment. She is an excellent candidate for Zepbound. #MIKEL. Currently on CPAP nightly. She is an excellent candidate for Zepbound. #Seizure disorder. Question of epilepsy currently on Keppra. Not a candidate for Contrave. #PCOS. Has previously tried metformin however had significant GI side effects. Patient meets criteria for Zepbound/Wegovy due to the following criteria: Patient is over the age of [age] years old. Patients BMI is greater than 30 at 50.0. Comorbidities include: MIKEL, Fatty liver, PCOS. These medications are being prescribed under the supervision of an obesity medicine certified physician, Dr. Gabino Hill. Weight Consult Plan: Patient has been found to be obese with a BMI of 50.0. Patient has class 3 obesity. Patient was reassured and welcomed to the practice. We discussed that we stress a hollistic medical approach with emphasis on lifestyle modification. Patient was informed that a healthy lifestyle with exercise and good eating habits can help reduce his risk of medical complications. He is explained that obesity increases his risk of diabetes, cardiovascular disease, or organ damage. We spent a lot of time discussing the relationship between food, exercise, sleep, mental health and obesity. Patient was counseled on the importance EATING local, organic food when possible. Patient was educated on clean 15 and dirty dozen. I provided information about reading books called The Food Rules by Deshawn Schroeder and Eat Fat Get Lean by Dr Lobito Castro. Self education is important in the journey for weight management. Patient was offered diagnostic testing. We want to measure visceral adiposity, advanced body composition, adverse lipids, fatty acid balance, risk for heart disease and atherosclerosis, markers of inflammation and genetic susceptibility. Patient was counseled on weight management and was advised to lose weight using B. Lifestyle management which includes several strategies as below 1. Eat a low carbohydrate good fat good protein diet. Eliminate refined carbohydrates from the diet. Continue blood sugar and sugared beverages. Eat local organic when possible. Cook your own meals. Read food labels. None about healthy snacks. Portion control and food with low glycemic index 2. Exercise regularly. Try to get at least 6000 steps a day. Use a predominant to track activity level. Consider using apps like RunTitle, SkyGridpal, lose it, stick as needed for self-monitoring and weight management. Consider group exercises. Consider hiring a personal counselor. Regular exercise is ashley to sustainable health and prevents as a buffer against weight regain 3. Sleep is most important for healing. Tried to sleep at least 8 hours a night. A good quality sleep needs a sleep ritual with ideal room temperature of around 68. It might help to take a shower and have no electronics in the room and sleep in a very dark room without artificial light. Start her sleep routine and get up early in the morning and go to bed on time 4. Make a social connection. Surround yourself with positive people with positive energy. Connect with friends and family. 5. Get into the habit of meditating and mindfulness while doing everything. 6. Go outside and connect with nature. C. Prescription medications Patient was educated on the use of prescription medications for medical weight loss. This is a growing list and includes phentermine, Topamax,Qsymia, contrave, belviq and saxenda. All prescription medications could have side effects including but not limited to kidney stones, seizure disorder cardiac arrhythmias heart attack pancreatitis etc. etc.. Patient was encouraged to read the prescription insert and have coaching with their pharmacist and make an informed decision about taking medication and know that these medications are being prescribed with good intentions and we do not know how a patient would react to her medication. Sudden medications are FDA approved for weight loss and there is also off label use depending on patient's inability to afford medications in an attempt to lose weight D. Behavioral counseling was done to establish a relationship between food and an mood. Patient was provided information about local counseling and psychiatry and Dr Schneider at [facility]. We would like to cover regular topics and build on low glycemic eating exercise mindful eating, using yoga and meditation along with deep breathing and connecting with friends and family. E. MASS PAT reviewed, Patient's current medications were reviewed and opinion was given on medication that can cause weight gain and can be substituted F. Patient was assessed for risk with obesity including and not limiting to atherosclerosis heart disease stroke kidney disease, restrictive lung disease, irritable bowel syndrome and overall mortality. Risk of developing prediabetes diabetes and metabolic syndrome was discussed G. Therapeutic plan: We have decided to make therapeutic plan which would include choosing wisely on calories restricting portion getting active, tracking weight, getting good quality sleep and working on time management H. Patient will follow up in (4) weeks for weight management Total time spent today was 60 minutes of which greater than 50% was spent on coordinating and counseling Case discussed with collaborating physician Erum Hill who reviewed the assessment and plan. Chart, medications, labs, vital signs reviewed. Dictation was accomplished with the use of Power [employer]fficiency voice recognition software, prone to medical misidentifications and grammatical errors. This is unintentional and the practitioner does try to identify and correct these, but some could still be present. Please do not hesitate to contact practitioner for clarification. All questions answered to patients satisfaction. Patient verbalized understanding of diagnosis and treatments explained. To call sooner prior to next visit it any questions/concerns arise. 05/20/2025 MIKEL on CPAP (ICD-10 - G47.33) #Morbid obesity. 273.7, BMI 49.3. Doing well on Zepbound so far. Currently at 2.5 mg dose. She will be having a procedure to remove uterine polyp in 3 weeks. Advised to hold her dose 2 weeks prior to procedure. Will plan to resume 2.5 mg dose after her procedure and then as long as she is tolerating it well we will move up to 5 mg dose. Continue to work on consistent protein intake, hydration and regular exercise. Follow-up with me in 6 weeks sooner with any concerns. #Fatty liver. Recently established with GI who referred her here for obesity treatment. Now on Zepbound. LFTs minimally elevated on labs. #MIKEL. Currently on CPAP nightly. Now on Zepbound. #Seizure disorder. Question of epilepsy currently on Keppra. Not a candidate for Contrave. #PCOS. Has previously tried metformin however had significant GI side effects. The patient will continue exercise regimen with an emphasis on improving/increasing steps to at least 6,000-10,000 steps per day. Increasing cardio and strength training exercises as tolerated to improve weight loss and work on building muscle mass. Patient is committed to smarter eating with calorie counting and mindful eating. Limiting processed foods and carbohydrates and increasing leafy greens and lean proteins as well as fruits into their diet. Patient was counseled on the importance of eating local, organic food when possible. Patient has been counseled regarding effects of GLP/GIP-1 agonists and other FDA approved weight loss medications with regards to a multifactorial approach of weight loss as mentioned above and that the medication alone will not be sufficient to meet patients goals. We discussed holistic medication approach with emphasis on lifestyle modification. Discussed obesity as it increases risk of diabetes, cardiovascular disease, and/or organ damage. We spent a lot of time discussing the relationship between food, exercise, sleep, mental health, and obesity. We discussed the importance of having SECAs done every visit and having accountability done during these visits. That the scale is done to monitor not only weight loss but the body composition during medication management and healthy lifestyle changes. We discussed that if the patient is unable at times to financially afford this scale that we would rather waive the fee and have the scale done than have the patient not have the scale obtained. Will follow up with the patient in 4 weeks time to monitor weight loss. Total time was 30 min, greater than 50 % of time was spent on care coordination Case discussed with collaborating physician Erum Hill who reviewed the assessment and plan. Chart, medications, labs, vital signs reviewed. Dictation was accomplished with the use of [employer] voice recognition software, prone to medical misidentifications and grammatical errors. This is unintentional and the practitioner does try to identify and correct these, but some could still be present. Please do not hesitate to contact practitioner for clarification. All questions answered to patients satisfaction. Patient verbalized understanding of diagnosis and treatments explained. To call sooner prior to next visit it any questions/concerns arise. 05/20/2025 Seizure disorder (ICD-10 - G40.909) #Morbid obesity. 273.7, BMI 49.3. Doing well on Zepbound so far. Currently at 2.5 mg dose. She will be having a procedure to remove uterine polyp in 3 weeks. Advised to hold her dose 2 weeks prior to procedure. Will plan to resume 2.5 mg dose after her procedure and then as long as she is tolerating it well we will move up to 5 mg dose. Continue to work on consistent protein intake, hydration and regular exercise. Follow-up with me in 6 weeks sooner with any concerns. #Fatty liver. Recently established with GI who referred her here for obesity treatment. Now on Zepbound. LFTs minimally elevated on labs. #MIKEL. Currently on CPAP nightly. Now on Zepbound. #Seizure disorder. Question of epilepsy currently on Keppra. Not a candidate for Contrave. #PCOS. Has previously tried metformin however had significant GI side effects. The patient will continue exercise regimen with an emphasis on improving/increasing steps to at least 6,000-10,000 steps per day. Increasing cardio and strength training exercises as tolerated to improve weight loss and work on building muscle mass. Patient is committed to smarter eating with calorie counting and mindful eating. Limiting processed foods and carbohydrates and increasing leafy greens and lean proteins as well as fruits into their diet. Patient was counseled on the importance of eating local, organic food when possible. Patient has been counseled regarding effects of GLP/GIP-1 agonists and other FDA approved weight loss medications with regards to a multifactorial approach of weight loss as mentioned above and that the medication alone will not be sufficient to meet patients goals. We discussed holistic medication approach with emphasis on lifestyle modification. Discussed obesity as it increases risk of diabetes, cardiovascular disease, and/or organ damage. We spent a lot of time discussing the relationship between food, exercise, sleep, mental health, and obesity. We discussed the importance of having SECAs done every visit and having accountability done during these visits. That the scale is done to monitor not only weight loss but the body composition during medication management and healthy lifestyle changes. We discussed that if the patient is unable at times to financially afford this scale that we would rather waive the fee and have the scale done than have the patient not have the scale obtained. Will follow up with the patient in 4 weeks time to monitor weight loss. Total time was 30 min, greater than 50 % of time was spent on care coordination Case discussed with collaborating physician Erum Hill who reviewed the assessment and plan. Chart, medications, labs, vital signs reviewed. Dictation was accomplished with the use of [employer] voice recognition software, prone to medical misidentifications and grammatical errors. This is unintentional and the practitioner does try to identify and correct these, but some could still be present. Please do not hesitate to contact practitioner for clarification. All questions answered to patients satisfaction. Patient verbalized understanding of diagnosis and treatments explained. To call sooner prior to next visit it any questions/concerns arise. 04/28/2025 Seizure disorder (ICD-10 - G40.909) #Morbid obesity. 277.9 pounds, BMI 50.0. New patient welcome to the practice today. Seca scale results reviewed in detail with patient. She is interested in medical weight loss options. Reviewed in detail with patient. Has previously tried metformin and Topamax and did not tolerate. She is not a candidate for Contrave given her history of seizure disorder. Given her past medical history significant for fatty liver, morbid obesity, MIKEL and PCOS she is an excellent candidate for Zepbound. We reviewed risk benefits adverse effects of medication in detail. Demonstrated proper use of pen autoinjector here in office. Also discussed importance of continued lifestyle modifications including healthy diet with a focus on high-protein, hydration and regular exercise including resistance training and a goal of 6000-10,000 steps daily. We also discussed importance of probiotics and B complex. Discussed option of adding CAMMIE injection which she will consider. Will get updated comprehensive labs and review at follow-up visit. She will clarify family medical history of thyroid disorder. Follow-up with me in 1 month sooner with any concerns. #Fatty liver. Recently established with GI who referred her here for obesity treatment. She is an excellent candidate for Zepbound. #MIKEL. Currently on CPAP nightly. She is an excellent candidate for Zepbound. #Seizure disorder. Question of epilepsy currently on Keppra. Not a candidate for Contrave. #PCOS. Has previously tried metformin however had significant GI side effects. Patient meets criteria for Zepbound/Wegovy due to the following criteria: Patient is over the age of [age] years old. Patients BMI is greater than 30 at 50.0. Comorbidities include: MIKEL, Fatty liver, PCOS. These medications are being prescribed under the supervision of an obesity medicine certified physician, Dr. Gabino Hill. Weight Consult Plan: Patient has been found to be obese with a BMI of 50.0. Patient has class 3 obesity. Patient was reassured and welcomed to the practice. We discussed that we stress a hollistic medical approach with emphasis on lifestyle modification. Patient was informed that a healthy lifestyle with exercise and good eating habits can help reduce his risk of medical complications. He is explained that obesity increases his risk of diabetes, cardiovascular disease, or organ damage. We spent a lot of time discussing the relationship between food, exercise, sleep, mental health and obesity. Patient was counseled on the importance EATING local, organic food when possible. Patient was educated on clean 15 and dirty dozen. I provided information about reading books called The Food Rules by Deshawn Schroeder and Eat Fat Get Lean by Dr Lobito Castro. Self education is important in the journey for weight management. Patient was offered diagnostic testing. We want to measure visceral adiposity, advanced body composition, adverse lipids, fatty acid balance, risk for heart disease and atherosclerosis, markers of inflammation and genetic susceptibility. Patient was counseled on weight management and was advised to lose weight using B. Lifestyle management which includes several strategies as below 1. Eat a low carbohydrate good fat good protein diet. Eliminate refined carbohydrates from the diet. Continue blood sugar and sugared beverages. Eat local organic when possible. Cook your own meals. Read food labels. None about healthy snacks. Portion control and food with low glycemic index 2. Exercise regularly. Try to get at least 6000 steps a day. Use a predominant to track activity level. Consider using apps like RunTitle, SkyGridpal, lose it, stick as needed for self-monitoring and weight management. Consider group exercises. Consider hiring a personal counselor. Regular exercise is ashley to sustainable health and prevents as a buffer against weight regain 3. Sleep is most important for healing. Tried to sleep at least 8 hours a night. A good quality sleep needs a sleep ritual with ideal room temperature of around 68. It might help to take a shower and have no electronics in the room and sleep in a very dark room without artificial light. Start her sleep routine and get up early in the morning and go to bed on time 4. Make a social connection. Surround yourself with positive people with positive energy. Connect with friends and family. 5. Get into the habit of meditating and mindfulness while doing everything. 6. Go outside and connect with nature. C. Prescription medications Patient was educated on the use of prescription medications for medical weight loss. This is a growing list and includes phentermine, Topamax,Qsymia, contrave, belviq and saxenda. All prescription medications could have side effects including but not limited to kidney stones, seizure disorder cardiac arrhythmias heart attack pancreatitis etc. etc.. Patient was encouraged to read the prescription insert and have coaching with their pharmacist and make an informed decision about taking medication and know that these medications are being prescribed with good intentions and we do not know how a patient would react to her medication. Sudden medications are FDA approved for weight loss and there is also off label use depending on patient's inability to afford medications in an attempt to lose weight D. Behavioral counseling was done to establish a relationship between food and an mood. Patient was provided information about local counseling and psychiatry and Dr Schneider at [facility]. We would like to cover regular topics and build on low glycemic eating exercise mindful eating, using yoga and meditation along with deep breathing and connecting with friends and family. E. MASS PAT reviewed, Patient's current medications were reviewed and opinion was given on medication that can cause weight gain and can be substituted F. Patient was assessed for risk with obesity including and not limiting to atherosclerosis heart disease stroke kidney disease, restrictive lung disease, irritable bowel syndrome and overall mortality. Risk of developing prediabetes diabetes and metabolic syndrome was discussed G. Therapeutic plan: We have decided to make therapeutic plan which would include choosing wisely on calories restricting portion getting active, tracking weight, getting good quality sleep and working on time management H. Patient will follow up in (4) weeks for weight management Total time spent today was 60 minutes of which greater than 50% was spent on coordinating and counseling Case discussed with collaborating physician Erum Hill who reviewed the assessment and plan. Chart, medications, labs, vital signs reviewed. Dictation was accomplished with the use of [employer] voice recognition software, prone to medical misidentifications and grammatical errors. This is unintentional and the practitioner does try to identify and correct these, but some could still be present. Please do not hesitate to contact practitioner for clarification. All questions answered to patients satisfaction. Patient verbalized understanding of diagnosis and treatments explained. To call sooner prior to next visit it any questions/concerns arise. 04/28/2025 PCOS (polycystic ovarian syndrome) (ICD-10 - E28.2) #Morbid obesity. 277.9 pounds, BMI 50.0. New patient welcome to the practice today. Seca scale results reviewed in detail with patient. She is interested in medical weight loss options. Reviewed in detail with patient. Has previously tried metformin and Topamax and did not tolerate. She is not a candidate for Contrave given her history of seizure disorder. Given her past medical history significant for fatty liver, morbid obesity, MIKEL and PCOS she is an excellent candidate for Zepbound. We reviewed risk benefits adverse effects of medication in detail. Demonstrated proper use of pen autoinjector here in office. Also discussed importance of continued lifestyle modifications including healthy diet with a focus on high-protein, hydration and regular exercise including resistance training and a goal of 6000-10,000 steps daily. We also discussed importance of probiotics and B complex. Discussed option of adding CAMMIE injection which she will consider. Will get updated comprehensive labs and review at follow-up visit. She will clarify family medical history of thyroid disorder. Follow-up with me in 1 month sooner with any concerns. #Fatty liver. Recently established with GI who referred her here for obesity treatment. She is an excellent candidate for Zepbound. #MIKEL. Currently on CPAP nightly. She is an excellent candidate for Zepbound. #Seizure disorder. Question of epilepsy currently on Keppra. Not a candidate for Contrave. #PCOS. Has previously tried metformin however had significant GI side effects. Patient meets criteria for Zepbound/Wegovy due to the following criteria: Patient is over the age of [age] years old. Patients BMI is greater than 30 at 50.0. Comorbidities include: MIKEL, Fatty liver, PCOS. These medications are being prescribed under the supervision of an obesity medicine certified physician, Dr. Gabino Hill. Weight Consult Plan: Patient has been found to be obese with a BMI of 50.0. Patient has class 3 obesity. Patient was reassured and welcomed to the practice. We discussed that we stress a hollistic medical approach with emphasis on lifestyle modification. Patient was informed that a healthy lifestyle with exercise and good eating habits can help reduce his risk of medical complications. He is explained that obesity increases his risk of diabetes, cardiovascular disease, or organ damage. We spent a lot of time discussing the relationship between food, exercise, sleep, mental health and obesity. Patient was counseled on the importance EATING local, organic food when possible. Patient was educated on clean 15 and dirty dozen. I provided information about reading books called The Food Rules by Deshawn Schroeder and Eat Fat Get Lean by Dr Lobito Castro. Self education is important in the journey for weight management. Patient was offered diagnostic testing. We want to measure visceral adiposity, advanced body composition, adverse lipids, fatty acid balance, risk for heart disease and atherosclerosis, markers of inflammation and genetic susceptibility. Patient was counseled on weight management and was advised to lose weight using B. Lifestyle management which includes several strategies as below 1. Eat a low carbohydrate good fat good protein diet. Eliminate refined carbohydrates from the diet. Continue blood sugar and sugared beverages. Eat local organic when possible. Cook your own meals. Read food labels. None about healthy snacks. Portion control and food with low glycemic index 2. Exercise regularly. Try to get at least 6000 steps a day. Use a predominant to track activity level. Consider using apps like 7 mionute excercise, myfitnesspal, lose it, stick as needed for self-monitoring and weight management. Consider group exercises. Consider hiring a personal counselor. Regular exercise is ashley to sustainable health and prevents as a buffer against weight regain 3. Sleep is most important for healing. Tried to sleep at least 8 hours a night. A good quality sleep needs a sleep ritual with ideal room temperature of around 68. It might help to take a shower and have no electronics in the room and sleep in a very dark room without artificial light. Start her sleep routine and get up early in the morning and go to bed on time 4. Make a social connection. Surround yourself with positive people with positive energy. Connect with friends and family. 5. Get into the habit of meditating and mindfulness while doing everything. 6. Go outside and connect with nature. C. Prescription medications Patient was educated on the use of prescription medications for medical weight loss. This is a growing list and includes phentermine, Topamax,Qsymia, contrave, belviq and saxenda. All prescription medications could have side effects including but not limited to kidney stones, seizure disorder cardiac arrhythmias heart attack pancreatitis etc. etc.. Patient was encouraged to read the prescription insert and have coaching with their pharmacist and make an informed decision about taking medication and know that these medications are being prescribed with good intentions and we do not know how a patient would react to her medication. Sudden medications are FDA approved for weight loss and there is also off label use depending on patient's inability to afford medications in an attempt to lose weight D. Behavioral counseling was done to establish a relationship between food and an mood. Patient was provided information about local counseling and psychiatry and Dr Schneider at [facility]. We would like to cover regular topics and build on low glycemic eating exercise mindful eating, using yoga and meditation along with deep breathing and connecting with friends and family. E. MASS PAT reviewed, Patient's current medications were reviewed and opinion was given on medication that can cause weight gain and can be substituted F. Patient was assessed for risk with obesity including and not limiting to atherosclerosis heart disease stroke kidney disease, restrictive lung disease, irritable bowel syndrome and overall mortality. Risk of developing prediabetes diabetes and metabolic syndrome was discussed G. Therapeutic plan: We have decided to make therapeutic plan which would include choosing wisely on calories restricting portion getting active, tracking weight, getting good quality sleep and working on time management H. Patient will follow up in (4) weeks for weight management Total time spent today was 60 minutes of which greater than 50% was spent on coordinating and counseling Case discussed with collaborating physician Erum Hill who reviewed the assessment and plan. Chart, medications, labs, vital signs reviewed. Dictation was accomplished with the use of Power [employer]fficiency voice recognition software, prone to medical misidentifications and grammatical errors. This is unintentional and the practitioner does try to identify and correct these, but some could still be present. Please do not hesitate to contact practitioner for clarification. All questions answered to patients satisfaction. Patient verbalized understanding of diagnosis and treatments explained. To call sooner prior to next visit it any questions/concerns arise. 05/20/2025 PCOS (polycystic ovarian syndrome) (ICD-10 - E28.2) #Morbid obesity. 273.7, BMI 49.3. Doing well on Zepbound so far. Currently at 2.5 mg dose. She will be having a procedure to remove uterine polyp in 3 weeks. Advised to hold her dose 2 weeks prior to procedure. Will plan to resume 2.5 mg dose after her procedure and then as long as she is tolerating it well we will move up to 5 mg dose. Continue to work on consistent protein intake, hydration and regular exercise. Follow-up with me in 6 weeks sooner with any concerns. #Fatty liver. Recently established with GI who referred her here for obesity treatment. Now on Zepbound. LFTs minimally elevated on labs. #MIKEL. Currently on CPAP nightly. Now on Zepbound. #Seizure disorder. Question of epilepsy currently on Keppra. Not a candidate for Contrave. #PCOS. Has previously tried metformin however had significant GI side effects. The patient will continue exercise regimen with an emphasis on improving/increasing steps to at least 6,000-10,000 steps per day. Increasing cardio and strength training exercises as tolerated to improve weight loss and work on building muscle mass. Patient is committed to smarter eating with calorie counting and mindful eating. Limiting processed foods and carbohydrates and increasing leafy greens and lean proteins as well as fruits into their diet. Patient was counseled on the importance of eating local, organic food when possible. Patient has been counseled regarding effects of GLP/GIP-1 agonists and other FDA approved weight loss medications with regards to a multifactorial approach of weight loss as mentioned above and that the medication alone will not be sufficient to meet patients goals. We discussed holistic medication approach with emphasis on lifestyle modification. Discussed obesity as it increases risk of diabetes, cardiovascular disease, and/or organ damage. We spent a lot of time discussing the relationship between food, exercise, sleep, mental health, and obesity. We discussed the importance of having SECAs done every visit and having accountability done during these visits. That the scale is done to monitor not only weight loss but the body composition during medication management and healthy lifestyle changes. We discussed that if the patient is unable at times to financially afford this scale that we would rather waive the fee and have the scale done than have the patient not have the scale obtained. Will follow up with the patient in 4 weeks time to monitor weight loss. Total time was 30 min, greater than 50 % of time was spent on care coordination Case discussed with collaborating physician Erum Hill who reviewed the assessment and plan. Chart, medications, labs, vital signs reviewed. Dictation was accomplished with the use of [employer]fficiency voice recognition software, prone to medical misidentifications and grammatical errors. This is unintentional and the practitioner does try to identify and correct these, but some could still be present. Please do not hesitate to contact practitioner for clarification. All questions answered to patients satisfaction. Patient verbalized understanding of diagnosis and treatments explained. To call sooner prior to next visit it any questions/concerns arise. 05/20/2025 Encounter for examination of blood pressure without abnormal findings (ICD-10 - Z01.30) #Morbid obesity. 273.7, BMI 49.3. Doing well on Zepbound so far. Currently at 2.5 mg dose. She will be having a procedure to remove uterine polyp in 3 weeks. Advised to hold her dose 2 weeks prior to procedure. Will plan to resume 2.5 mg dose after her procedure and then as long as she is tolerating it well we will move up to 5 mg dose. Continue to work on consistent protein intake, hydration and regular exercise. Follow-up with me in 6 weeks sooner with any concerns. #Fatty liver. Recently established with GI who referred her here for obesity treatment. Now on Zepbound. LFTs minimally elevated on labs. #MIKEL. Currently on CPAP nightly. Now on Zepbound. #Seizure disorder. Question of epilepsy currently on Keppra. Not a candidate for Contrave. #PCOS. Has previously tried metformin however had significant GI side effects. The patient will continue exercise regimen with an emphasis on improving/increasing steps to at least 6,000-10,000 steps per day. Increasing cardio and strength training exercises as tolerated to improve weight loss and work on building muscle mass. Patient is committed to smarter eating with calorie counting and mindful eating. Limiting processed foods and carbohydrates and increasing leafy greens and lean proteins as well as fruits into their diet. Patient was counseled on the importance of eating local, organic food when possible. Patient has been counseled regarding effects of GLP/GIP-1 agonists and other FDA approved weight loss medications with regards to a multifactorial approach of weight loss as mentioned above and that the medication alone will not be sufficient to meet patients goals. We discussed holistic medication approach with emphasis on lifestyle modification. Discussed obesity as it increases risk of diabetes, cardiovascular disease, and/or organ damage. We spent a lot of time discussing the relationship between food, exercise, sleep, mental health, and obesity. We discussed the importance of having SECAs done every visit and having accountability done during these visits. That the scale is done to monitor not only weight loss but the body composition during medication management and healthy lifestyle changes. We discussed that if the patient is unable at times to financially afford this scale that we would rather waive the fee and have the scale done than have the patient not have the scale obtained. Will follow up with the patient in 4 weeks time to monitor weight loss. Total time was 30 min, greater than 50 % of time was spent on care coordination Case discussed with collaborating physician Erum Hill who reviewed the assessment and plan. Chart, medications, labs, vital signs reviewed. Dictation was accomplished with the use of [employer] voice recognition software, prone to medical misidentifications and grammatical errors. This is unintentional and the practitioner does try to identify and correct these, but some could still be present. Please do not hesitate to contact practitioner for clarification. All questions answered to patients satisfaction. Patient verbalized understanding of diagnosis and treatments explained. To call sooner prior to next visit it any questions/concerns arise. 04/28/2025 Encounter for examination of blood pressure without abnormal findings (ICD-10 - Z01.30) #Morbid obesity. 277.9 pounds, BMI 50.0. New patient welcome to the practice today. Seca scale results reviewed in detail with patient. She is interested in medical weight loss options. Reviewed in detail with patient. Has previously tried metformin and Topamax and did not tolerate. She is not a candidate for Contrave given her history of seizure disorder. Given her past medical history significant for fatty liver, morbid obesity, MIKEL and PCOS she is an excellent candidate for Zepbound. We reviewed risk benefits adverse effects of medication in detail. Demonstrated proper use of pen autoinjector here in office. Also discussed importance of continued lifestyle modifications including healthy diet with a focus on high-protein, hydration and regular exercise including resistance training and a goal of 6000-10,000 steps daily. We also discussed importance of probiotics and B complex. Discussed option of adding CAMMIE injection which she will consider. Will get updated comprehensive labs and review at follow-up visit. She will clarify family medical history of thyroid disorder. Follow-up with me in 1 month sooner with any concerns. #Fatty liver. Recently established with GI who referred her here for obesity treatment. She is an excellent candidate for Zepbound. #MIKEL. Currently on CPAP nightly. She is an excellent candidate for Zepbound. #Seizure disorder. Question of epilepsy currently on Keppra. Not a candidate for Contrave. #PCOS. Has previously tried metformin however had significant GI side effects. Patient meets criteria for Zepbound/Wegovy due to the following criteria: Patient is over the age of [age] years old. Patients BMI is greater than 30 at 50.0. Comorbidities include: MIKEL, Fatty liver, PCOS. These medications are being prescribed under the supervision of an obesity medicine certified physician, Dr. Gabino Hill. Weight Consult Plan: Patient has been found to be obese with a BMI of 50.0. Patient has class 3 obesity. Patient was reassured and welcomed to the practice. We discussed that we stress a hollistic medical approach with emphasis on lifestyle modification. Patient was informed that a healthy lifestyle with exercise and good eating habits can help reduce his risk of medical complications. He is explained that obesity increases his risk of diabetes, cardiovascular disease, or organ damage. We spent a lot of time discussing the relationship between food, exercise, sleep, mental health and obesity. Patient was counseled on the importance EATING local, organic food when possible. Patient was educated on clean 15 and dirty dozen. I provided information about reading books called The Food Rules by Deshawn Schroeder and Eat Fat Get Lean by Dr Lobito Castro. Self education is important in the journey for weight management. Patient was offered diagnostic testing. We want to measure visceral adiposity, advanced body composition, adverse lipids, fatty acid balance, risk for heart disease and atherosclerosis, markers of inflammation and genetic susceptibility. Patient was counseled on weight management and was advised to lose weight using B. Lifestyle management which includes several strategies as below 1. Eat a low carbohydrate good fat good protein diet. Eliminate refined carbohydrates from the diet. Continue blood sugar and sugared beverages. Eat local organic when possible. Cook your own meals. Read food labels. None about healthy snacks. Portion control and food with low glycemic index 2. Exercise regularly. Try to get at least 6000 steps a day. Use a predominant to track activity level. Consider using apps like Run[employer], [employer], lose it, stick as needed for self-monitoring and weight management. Consider group exercises. Consider hiring a personal counselor. Regular exercise is ashley to sustainable health and prevents as a buffer against weight regain 3. Sleep is most important for healing. Tried to sleep at least 8 hours a night. A good quality sleep needs a sleep ritual with ideal room temperature of around 68. It might help to take a shower and have no electronics in the room and sleep in a very dark room without artificial light. Start her sleep routine and get up early in the morning and go to bed on time 4. Make a social connection. Surround yourself with positive people with positive energy. Connect with friends and family. 5. Get into the habit of meditating and mindfulness while doing everything. 6. Go outside and connect with nature. C. Prescription medications Patient was educated on the use of prescription medications for medical weight loss. This is a growing list and includes phentermine, Topamax,Qsymia, contrave, belviq and saxenda. All prescription medications could have side effects including but not limited to kidney stones, seizure disorder cardiac arrhythmias heart attack pancreatitis etc. etc.. Patient was encouraged to read the prescription insert and have coaching with their pharmacist and make an informed decision about taking medication and know that these medications are being prescribed with good intentions and we do not know how a patient would react to her medication. Sudden medications are FDA approved for weight loss and there is also off label use depending on patient's inability to afford medications in an attempt to lose weight D. Behavioral counseling was done to establish a relationship between food and an mood. Patient was provided information about local counseling and psychiatry and Dr Schneider at [facility]. We would like to cover regular topics and build on low glycemic eating exercise mindful eating, using yoga and meditation along with deep breathing and connecting with friends and family. E. MASS PAT reviewed, Patient's current medications were reviewed and opinion was given on medication that can cause weight gain and can be substituted F. Patient was assessed for risk with obesity including and not limiting to atherosclerosis heart disease stroke kidney disease, restrictive lung disease, irritable bowel syndrome and overall mortality. Risk of developing prediabetes diabetes and metabolic syndrome was discussed G. Therapeutic plan: We have decided to make therapeutic plan which would include choosing wisely on calories restricting portion getting active, tracking weight, getting good quality sleep and working on time management H. Patient will follow up in (4) weeks for weight management Total time spent today was 60 minutes of which greater than 50% was spent on coordinating and counseling Case discussed with collaborating physician Erum Hill who reviewed the assessment and plan. Chart, medications, labs, vital signs reviewed. Dictation was accomplished with the use of [employer] voice recognition software, prone to medical misidentifications and grammatical errors. This is unintentional and the practitioner does try to identify and correct these, but some could still be present. Please do not hesitate to contact practitioner for clarification. All questions answered to patients satisfaction. Patient verbalized understanding of diagnosis and treatments explained. To call sooner prior to next visit it any questions/concerns arise. 04/28/2025 Encounter for weight loss counseling (ICD-10 - Z71.3) #Morbid obesity. 277.9 pounds, BMI 50.0. New patient welcome to the practice today. Seca scale results reviewed in detail with patient. She is interested in medical weight loss options. Reviewed in detail with patient. Has previously tried metformin and Topamax and did not tolerate. She is not a candidate for Contrave given her history of seizure disorder. Given her past medical history significant for fatty liver, morbid obesity, MIKEL and PCOS she is an excellent candidate for Zepbound. We reviewed risk benefits adverse effects of medication in detail. Demonstrated proper use of pen autoinjector here in office. Also discussed importance of continued lifestyle modifications including healthy diet with a focus on high-protein, hydration and regular exercise including resistance training and a goal of 6000-10,000 steps daily. We also discussed importance of probiotics and B complex. Discussed option of adding CAMMIE injection which she will consider. Will get updated comprehensive labs and review at follow-up visit. She will clarify family medical history of thyroid disorder. Follow-up with me in 1 month sooner with any concerns. #Fatty liver. Recently established with GI who referred her here for obesity treatment. She is an excellent candidate for Zepbound. #MIKEL. Currently on CPAP nightly. She is an excellent candidate for Zepbound. #Seizure disorder. Question of epilepsy currently on Keppra. Not a candidate for Contrave. #PCOS. Has previously tried metformin however had significant GI side effects. Patient meets criteria for Zepbound/Wegovy due to the following criteria: Patient is over the age of [age] years old. Patients BMI is greater than 30 at 50.0. Comorbidities include: MIKEL, Fatty liver, PCOS. These medications are being prescribed under the supervision of an obesity medicine certified physician, Dr. Gabino Hill. Weight Consult Plan: Patient has been found to be obese with a BMI of 50.0. Patient has class 3 obesity. Patient was reassured and welcomed to the practice. We discussed that we stress a hollistic medical approach with emphasis on lifestyle modification. Patient was informed that a healthy lifestyle with exercise and good eating habits can help reduce his risk of medical complications. He is explained that obesity increases his risk of diabetes, cardiovascular disease, or organ damage. We spent a lot of time discussing the relationship between food, exercise, sleep, mental health and obesity. Patient was counseled on the importance EATING local, organic food when possible. Patient was educated on clean 15 and dirty dozen. I provided information about reading books called The Food Rules by Deshawn Schroeder and Eat Fat Get Lean by Dr Lobito Castro. Self education is important in the journey for weight management. Patient was offered diagnostic testing. We want to measure visceral adiposity, advanced body composition, adverse lipids, fatty acid balance, risk for heart disease and atherosclerosis, markers of inflammation and genetic susceptibility. Patient was counseled on weight management and was advised to lose weight using B. Lifestyle management which includes several strategies as below 1. Eat a low carbohydrate good fat good protein diet. Eliminate refined carbohydrates from the diet. Continue blood sugar and sugared beverages. Eat local organic when possible. Cook your own meals. Read food labels. None about healthy snacks. Portion control and food with low glycemic index 2. Exercise regularly. Try to get at least 6000 steps a day. Use a predominant to track activity level. Consider using apps like Run[employer], [employer], lose it, stick as needed for self-monitoring and weight management. Consider group exercises. Consider hiring a personal counselor. Regular exercise is ashley to sustainable health and prevents as a buffer against weight regain 3. Sleep is most important for healing. Tried to sleep at least 8 hours a night. A good quality sleep needs a sleep ritual with ideal room temperature of around 68. It might help to take a shower and have no electronics in the room and sleep in a very dark room without artificial light. Start her sleep routine and get up early in the morning and go to bed on time 4. Make a social connection. Surround yourself with positive people with positive energy. Connect with friends and family. 5. Get into the habit of meditating and mindfulness while doing everything. 6. Go outside and connect with nature. C. Prescription medications Patient was educated on the use of prescription medications for medical weight loss. This is a growing list and includes phentermine, Topamax,Qsymia, contrave, belviq and saxenda. All prescription medications could have side effects including but not limited to kidney stones, seizure disorder cardiac arrhythmias heart attack pancreatitis etc. etc.. Patient was encouraged to read the prescription insert and have coaching with their pharmacist and make an informed decision about taking medication and know that these medications are being prescribed with good intentions and we do not know how a patient would react to her medication. Sudden medications are FDA approved for weight loss and there is also off label use depending on patient's inability to afford medications in an attempt to lose weight D. Behavioral counseling was done to establish a relationship between food and an mood. Patient was provided information about local counseling and psychiatry and Dr Schneider at [facility]. We would like to cover regular topics and build on low glycemic eating exercise mindful eating, using yoga and meditation along with deep breathing and connecting with friends and family. E. MASS PAT reviewed, Patient's current medications were reviewed and opinion was given on medication that can cause weight gain and can be substituted F. Patient was assessed for risk with obesity including and not limiting to atherosclerosis heart disease stroke kidney disease, restrictive lung disease, irritable bowel syndrome and overall mortality. Risk of developing prediabetes diabetes and metabolic syndrome was discussed G. Therapeutic plan: We have decided to make therapeutic plan which would include choosing wisely on calories restricting portion getting active, tracking weight, getting good quality sleep and working on time management H. Patient will follow up in (4) weeks for weight management Total time spent today was 60 minutes of which greater than 50% was spent on coordinating and counseling Case discussed with collaborating physician Erum Hill who reviewed the assessment and plan. Chart, medications, labs, vital signs reviewed. Dictation was accomplished with the use of [employer] voice recognition software, prone to medical misidentifications and grammatical errors. This is unintentional and the practitioner does try to identify and correct these, but some could still be present. Please do not hesitate to contact practitioner for clarification. All questions answered to patients satisfaction. Patient verbalized understanding of diagnosis and treatments explained. To call sooner prior to next visit it any questions/concerns arise. 05/20/2025 Encounter for weight loss counseling (ICD-10 - Z71.3) #Morbid obesity. 273.7, BMI 49.3. Doing well on Zepbound so far. Currently at 2.5 mg dose. She will be having a procedure to remove uterine polyp in 3 weeks. Advised to hold her dose 2 weeks prior to procedure. Will plan to resume 2.5 mg dose after her procedure and then as long as she is tolerating it well we will move up to 5 mg dose. Continue to work on consistent protein intake, hydration and regular exercise. Follow-up with me in 6 weeks sooner with any concerns. #Fatty liver. Recently established with GI who referred her here for obesity treatment. Now on Zepbound. LFTs minimally elevated on labs. #MIKEL. Currently on CPAP nightly. Now on Zepbound. #Seizure disorder. Question of epilepsy currently on Keppra. Not a candidate for Contrave. #PCOS. Has previously tried metformin however had significant GI side effects. The patient will continue exercise regimen with an emphasis on improving/increasing steps to at least 6,000-10,000 steps per day. Increasing cardio and strength training exercises as tolerated to improve weight loss and work on building muscle mass. Patient is committed to smarter eating with calorie counting and mindful eating. Limiting processed foods and carbohydrates and increasing leafy greens and lean proteins as well as fruits into their diet. Patient was counseled on the importance of eating local, organic food when possible. Patient has been counseled regarding effects of GLP/GIP-1 agonists and other FDA approved weight loss medications with regards to a multifactorial approach of weight loss as mentioned above and that the medication alone will not be sufficient to meet patients goals. We discussed holistic medication approach with emphasis on lifestyle modification. Discussed obesity as it increases risk of diabetes, cardiovascular disease, and/or organ damage. We spent a lot of time discussing the relationship between food, exercise, sleep, mental health, and obesity. We discussed the importance of having SECAs done every visit and having accountability done during these visits. That the scale is done to monitor not only weight loss but the body composition during medication management and healthy lifestyle changes. We discussed that if the patient is unable at times to financially afford this scale that we would rather waive the fee and have the scale done than have the patient not have the scale obtained. Will follow up with the patient in 4 weeks time to monitor weight loss. Total time was 30 min, greater than 50 % of time was spent on care coordination Case discussed with collaborating physician Erum Hill who reviewed the assessment and plan. Chart, medications, labs, vital signs reviewed. Dictation was accomplished with the use of [employer] voice recognition software, prone to medical misidentifications and grammatical errors. This is unintentional and the practitioner does try to identify and correct these, but some could still be present. Please do not hesitate to contact practitioner for clarification. All questions answered to patients satisfaction. Patient verbalized understanding of diagnosis and treatments explained. To call sooner prior to next visit it any questions/concerns arise. Plan Of Treatment Pending Test Test Name Order Date LIPID PANEL, STANDARD 04/28/2025 COMPREHENSIVE METABOLIC PANEL 04/28/2025 CBC (INCLUDES DIFF/PLT) 04/28/2025 HEMOGLOBIN A1c 04/28/2025 TSH W/REFLEX TO FT4 04/28/2025 VITAMIN D,25-OH,TOTAL,IA 04/28/2025 Vitamin D, [id number] 04/30/2025 Comp. Metabolic Panel [id number] 2024 Next Appt Details Provider Name:Ramonita Gregorio, 1 08/31/2024 03:00:00 PM, [address] [facility], [facility] [address], [place], [address], Insurance Providers Payer Name Payer Address Payer Phone Subscriber Number Group Number Insured Name Patient Relationship to Insured Coverage Start Date Coverage End Date [facility] [address] [place] [address] [phone] [id number] Isa Navarro Self - patient is the insured Medical (General) History Medical History History ICD Code ovarian cysts gallstones uterine polyps anemia liver disease gallbladder disease seizures Surgical History Surgery Date(Month/Year) gallstones ovarian cyst uterine polyps
--- OUTSIDE RECORDS SUMMARY | 2025-05-29 19:39 | XMS_ITS | Clinical Summary ---
Author Organization [facility] Address [address] [address] Phone Care Team Providers Care Surgical Brace Maker Name Role Phone Cathy Lewis Primary Care Provider [phone] Social History Tobacco Use Types Packs/Day Years Used Date Smoking Tobacco: Never Assessed Education Answer Date Recorded Are you interested in more education? Not on natalie e 07/26/2023 Are you concerned about learning? Not on file 07/26/2023 No 07/26/2023 No 07/26/2023 Digital Access Answer Date Recorded No 07/26/2023 No 07/26/2023 Reliable internet access at home? Not on file 07/26/2023 Device with a working camera? Not on file Comments Unknown Sex and Gender Information Value Date Recorded Sex Assigned at Not on file Legal Sex Female 10:16 AM EST Gender Identity Not on file Sexual Orientation Not on file Plan of Treatment Health Maintenance Due Date Last Done Comments Adult Td,Tdap Booster 1974 LIPID PANEL 1974 DEPRESSION SCREENING 1986 SMOKING Hx and SMOKELESS TOB ACCO SCREENING 1987 HEPATITIS C SCREENING 1992 HIV ONE-TIME SCREENING (18-6 5 YEARS) 1992 PAP SMEAR 1995 MAMMOGRAM 2014 COLOGUARD 2019 COLONOSCOPY 2019 COLORECTAL CANCER SCREENING 2019 FIT TEST 2019 FOBT 2019 SIGMOIDOSCOPY 2019 VIRTUAL COLONOSCOPY 2019 PNEUMOCOCCAL VACCINES (50+ y ears) (1 of 1 - PCV) 2024 ZOSTER VACCINES (1 of 2) 2024 INFLUENZA VACCINE (#1) 2025 COVID-19 VACCINE (1 - 2024-2 6 season) 2025 RSV VACCINE (1 - 1-dose 75+ series) 2049 HEPATITIS A VACCINES Aged Out No long er eligible based on patient's age to complete this topic HIB VACCINES Aged Out No longer eligi ble based on patient's age to complete this topic MENINGOCOCCAL VACCINES (ACWY) Aged Out No longer eligible based on patient's age to complete this topic MENINGOCOCCAL VACCINES (B) Aged Out N o longer eligible based on patient's age to complete this topic Medical Devices Not on file Insurance [facility] Care Teams Surgical Brace Maker Relationship Specialty Start Date End Date Cathy Lewis PA [address] [place] [id number] PCP - General Physician Edge Worker 07/26/23 Additional Source Comments The information contained in this document represents components of the legal health record. It is not the complete legal health record.[facility]
--- OUTSIDE RECORDS SUMMARY | 2025-05-29 19:39 | XMS_ITS | Patient Health Record ---
[facility]ван cecille Coleman Address [address] [address] Care Team Providers Care Aircraft Cleaner Name Role Phone Dejuan Alcazar Primary Care Provider Sharon Prajapati Unavailable [phone] Allergies Allergen (clinical drug ingredient) Drug/Non Drug Allergy documented on EMR Reaction Allergy Type Onset Date Status Adhesive rash Allergy Active Penicillin rash Drug Allergy Active Reason For Referral Diagnosis 1 Pain in unspecified foot (M79.673) Referring Provider First Name Dejuan Referring Provider Last Name [facility] Referred Provider Sharon Burr Referred Address [address] [place], [place],[address], Referred Provider Specialty Podiatry Referral Priority Routine Medications Medication SIG (Take, Route, Frequency, Duration) Notes Start Date End Date Status Omeprazole 20 MG 1 capsule 1/2 to 1 h our before morning meal Orally Once a day Active Tolterodine Tartrate Active levETIRAcetam Active Ferrous Sulfate 325 (65 Fe) MG 3 times a day Orally every other day Active Social History Tobacco Use: Social History Observation Description Date Details (start date - stop date) Never Smoker NA - NA Tobacco use other than smoking: Question Answer Notes Are you an other tobacco user? No Tobacco Control (Standard) Question Answer Notes Tobacco use: Nonsmoker Additional Findings: Tobacco non-user Current no nsmoker AUDIT-C (Standard) Question Answer Notes Did you have a drink contain ing alcohol in the past year? Yes How often did you have a dri nk containing alcohol in the past year? Declined to specify (0 point) How many drinks did you have on a typical day when you were drinking in the past year? Declined to specify (0 point) How often did you have six o r more drinks on one occasion in the past year? Declined to specify (0 point) Points 0 Interpretation Negative Vital Signs Blood pressure diastolic 80 mm Hg 11/28/2024 Height 5ft2in in 11/28/2024 Blood pressure systolic 124 mm Hg 11/28/2024 Weight 283 lbs 11/28/2024 BMI 51.76 kg/m2 11/28/2024 Encounters Encounter Location Date Provider Diagnosis [facility] [address] [address] 11/28/2024 Sharon Perica Pain in left foot M79.672 ; Stress fracture of left foot, initial encounter M84.375A ; Bursitis of intermetatarsal bursa of left foot M77.52 and Metatarsalgia, left foot M77.42 [facility] [address] [address] 11/28/2024 Sharon Burr Assessments Encounter Date Diagnosis (ICD Code) Assessment Notes Treatment Notes Treatment Clinical Notes Section Notes 11/28/2024 Pain in left foot (ICD-10 - M79.672) 11/28/2024 Stress fracture of left foot, initial encounter (ICD-10 - M84.375A) 11/28/2024 Bursitis of intermetatarsal bursa of left foot (ICD-10 - M77.52) 11/28/2024 Metatarsalgia, left foot (ICD-10 - M77.42) Plan Of Treatment Pending Test Test Name Order Date X ray : Foot, left 3V 11/28/2024 Insurance Providers Payer Name Payer Address Payer Phone Subscriber Number Group Number Insured Name Patient Relationship to Insured Coverage Start Date Coverage End Date [facility] [address] [place] [address] [phone] [id number] [address] [employer] Spouse - patient is the spouse of the insured Medical (General) History Medical History History ICD Code Anemia Back,Hip,and Knee pain covid-19 Epilepsy Gall bladder problems Headaches/Migraines Liver disease Psoriasis/eczema Reflux ( GERD) Chicken pox Surgical History Surgery Date(Month/Year) Gall bladder removal 2003 oopherectomy 2009
[2025-05-29 20:42] VITALS: BP 135/84; PULSE 72; TEMP 36.6; O2SAT 95
[2025-05-29] MEDS: Erythromycin Base 0.5% Oph Oin 1 GM TUBE 1 CM EYE-LEFT (21:59)
[2025-05-29 22:02] VITALS: BP 135/84; PULSE 72; RESP 18; TEMP 36.6; O2SAT 95
== END 2025-05-29 22:03 | disposition home or self-care (01) ==
PROVIDERS: Emergency Provider Emergency Medicine Emergency Medical Services; PCP Physician Assistant
DX: H00.15 Chalazion left lower eyelid (principal); H53.8 Other visual disturbances; H57.89 Other specified disorders of eye and adnexa
CPT/HCPCS: 99283; 99284